=== PATIENT | female | born 1940 | race Caucasian/White ===

== ENCOUNTER → 2016-05-10 | Outpatient (CLI) | payer MEDICARE, BC, MEDICAID ==
[2016-05-10 14:37] LABS: ALBUMIN 3.8 GM/DL (3.2-5.2); ALBUMIN/GLOBULIN RATIO 0.97 (1.00-1.93); BILIRUBIN,TOTAL 0.2 MG/DL (0.2-1.0); CALCIUM LEVEL 9.5 MG/DL (8.8-10.2); CREATININE FOR GFR 0.98 MG/DL (0.55-1.02); GLOMERULAR FILTRATION RATE 58.9 (>39); POTASSIUM SERUM 3.9 MEQ/L (3.5-5.1); TOTAL PROTEIN 7.7 GM/DL (6.4-8.2)
--- NOTE | 2016-05-10 14:42 | REP ---
Clinical: Presurgical planning Comparison: 07/01/2015 . Technique: PA and lateral. Findings: The mediastinum and cardiac silhouette are normal. The lung puckett are clear and without acute consolidation, effusion, or pneumothorax. The skeletal structures are intact and normal. Impression: 1. No acute cardiopulmonary process. Signed by Alcon Gavin MD 05/10/2016 02:34 P
--- NOTE | 2016-05-11 09:22 | ECGEPIP ---
Stationary ECG Study [facility] Test Date: 2016-05-10 Pat Name: SR CUNNINGHAM Department: Room: - Gender: F Virologist: COLT : 1940 Requested By: Madhav Madden Order Number: [id number] Reading MD: Kris Lantigua Measurements Intervals [place]dick Rate: 71 P: 61 GA: 152 QRS: 9 QRSD: 148 T: 158 QT: 437 QTc: 475 Interpretive Statements SINUS RHYTHM LEFT BUNDLE BRANCH BLOCK Prolonged QTc Comparison tracing not on file Electronically Signed On 05-11-2016 9:22:07 EST by Kris Lantigua
== END | disposition home or self-care (01) ==
LOC: M LAB 13:48
PROVIDERS: ATTEND Ophthalmology
DX: Z01.818 Encounter for other preprocedural examination (principal); H25.13 Age-related nuclear cataract, bilateral; I44.7 Left bundle-branch block, unspecified; R94.31 Abnormal electrocardiogram [ECG] [EKG]

== ENCOUNTER → 2016-05-27 | Day surgery (SDC) | payer MEDICARE, BC, MEDICAID ==
[~2016-05-27] VITALS: Ht 160 cm; Wt 86.2 kg
[~2016-05-27] MED LIST: ACETYLCHOLINE OPHTH SOLN 1% 2ML As Ordered ONE; ACETYLCHOLINE OPHTH SOLN 1% 2ML XX ONE; ASPI1TAB PO; BALANCED SALT IRRIGATION SOL 500ML GLASS BOTTLE (FOR OR EYE COMPOUND) IR ONE; BALANCED SALT IRRIGATION SOLUTION 500ML BAG (FOR OR EYE MACHINE) As Ordered ONE; CALC500T49 PO; CARV3.12 PO; CLON1TAB PO; D5W/0.2% SODIUM CHLORIDE 250 ML IV SCH; FISH1000 PO; FURO20TA2 PO; HEALON DUET (HEALON 10MG/ML 0.55ML & HEALON ENDOCOAT 30MG/ML 0.85ML) As Ordered ONE; HEALON DUET (HEALON 10MG/ML 0.55ML & HEALON ENDOCOAT 30MG/ML 0.85ML) XX ONE; LEVO75TA4 PO; LIDOCAINE 0.75%/EPINEPHRINE 0.025% IN BSS 1ML SYR INTRACAMERAL (OR ONLY) As Ordered ONE; LIDOCAINE 0.75%/EPINEPHRINE 0.025% IN BSS 1ML SYR INTRACAMERAL (OR ONLY) XX ONE; LIDOCAINE 4% INJ 5 ML AMP As Ordered ONE; LIDOCAINE 4% INJ 5 ML AMP XX ONE; MIDAZOLAM INJ 2 MG/2 ML VIAL (J2250) As Ordered ONE; OFLOXACIN 0.3 % (OCUFLOX) OPTH SOL 5ML OS ONE; PHENYLEPHRINE 2.5% OPHTH SOL 2ML OS ONE; POVIDONE-IODINE 5% OPHTH PREP SOL 30ML As Ordered ONE; PROPARACAINE 0.5% OPHTH SOL 15ML OS ONE; REST0.05 OU; SERT-141 PO; SYST1SOL OU; TOBRADEX OPHTH OINT 3.5 GM As Ordered ONE; TOBRADEX OPHTH OINT 3.5 GM XX ONE; TROPICAMIDE 1% OPHTH SOLN 2 ML OS ONE; TYLE650T35 PO; VITA100072 PO; fentaNYL 100 MCG/2 ML INJECTION (J3010) As Ordered ONE
[2016-05-27 10:15] VITALS: BP 150/75
--- NOTE | 2016-05-28 11:17 | RO ---
DATE OF PROCEDURE: 05/27/2016 PREOPERATIVE DIAGNOSIS: Visually significant nuclear sclerotic cataract left eye. POSTOPERATIVE DIAGNOSIS: Visually significant nuclear sclerotic cataract left eye. PROCEDURE: Cataract extraction with use of phacoemulsification and placement of intraocular lens ZCB00, 23.5 diopter, left eye. SURGEON: Tim Nguyen DO RAW SILK GRADER: ANESTHESIA: Local with monitored anesthesia care (MAC). COMPLICATIONS: None. POSTOPERATIVE CONDITION: Stable. INDICATION FOR SURGERY: Blurred vision left eye affecting patient's activities of daily living. DESCRIPTION OF PROCEDURE: The patient was seen in the preoperative area and properly identified. The correct operative eye was identified and marked. Attention was turned to that eye. The patient received topical antibiotics in the preoperative area. The patient then received topical dilating drops consisting of tropicamide and phenylephrine. The patient was then transferred to the operating room. The correct side was reidentified. The patient received topical anesthetics and antibiotics on the surface of the eye. The eye was prepped and draped in a sterile fashion. The upper and lower eyelids were isolated with Tegaderm tape, and the lids were held open with an adjustable speculum. Using a sideport blade, a paracentesis incision was made. Intraocular preservative-free lidocaine was then injected into the anterior chamber. Viscoelastic was then injected into the anterior chamber through the paracentesis. Using a 2.65 mm sharp-tipped keratome, the anterior chamber was entered via a temporal clear corneal incision. A continuous curvilinear capsulorrhexis was created with the aid of a 26-gauge cystotome and Utrata forceps. Hydrodissection was performed with balanced salt solution (BSS) on a blunt cannula until the nucleus was freely mobile. The crystalline lens was phacoemulsified and aspirated. Additional cohesive viscoelastic was placed into the capsular bag to deepen it. A ZCB00, 23.5 diopter lens was placed into the capsular bag and confirmed by visualizing the continuous curvilinear capsulorrhexis. Additional irrigation and aspiration was used to remove cortical material and remaining viscoelastic. The clear corneal incision was hydrated with BSS on a blunt cannula. The lens was well positioned. The incisions were then tested for leaks and found to be negative. The eye was then palpated for appropriate pressure and adjusted accordingly with BSS. The eyelid speculum was then carefully removed. Tobradex ointment was placed in the eye. An eye patch and shield were then secured over the eye. The patient tolerated the procedure well and was discharged to the recovery unit in a stable condition. TONYA
== END | disposition home or self-care (01) ==
LOC: M SDC 07:04
PROVIDERS: ATTEND Ophthalmology
DX: H25.12 Age-related nuclear cataract, left eye (principal); I50.22 Chronic systolic (congestive) heart failure; I42.0 Dilated cardiomyopathy; I44.7 Left bundle-branch block, unspecified; E78.5 Hyperlipidemia, unspecified; E66.9 Obesity, unspecified; G47.33 Obstructive sleep apnea (adult) (pediatric); E03.9 Hypothyroidism, unspecified; K21.9 Gastro-esophageal reflux disease without esophagitis; M19.90 Unspecified osteoarthritis, unspecified site; M54.9 Dorsalgia, unspecified; Z91.81 History of falling; Z79.899 Other long term (current) drug therapy; Z79.82 Long term (current) use of aspirin; Z88.8 Allergy status to other drugs, medicaments and biological substances; Z88.0 Allergy status to penicillin; Z88.2 Allergy status to sulfonamides
CPT/HCPCS: 66984; J2250; J3010; V2632

== ENCOUNTER → 2016-06-17 | Day surgery (SDC) | payer MEDICARE, BC, MEDICAID ==
[~2016-06-17] VITALS: Ht 160 cm; Wt 86.0 kg
[~2016-06-17] MED LIST changes: -BALANCED SALT IRRIGATION SOL 500ML GLASS BOTTLE (FOR OR EYE COMPOUND) IR ONE; +CEFUROXIME 1MG/0.1ML INTRACAMERAL INJ As Ordered ONE; -D5W/0.2% SODIUM CHLORIDE 250 ML IV SCH; -LIDOCAINE 0.75%/EPINEPHRINE 0.025% IN BSS 1ML SYR INTRACAMERAL (OR ONLY) XX ONE; +LIDOCAINE 1% SDV 5 ML VIAL XX ONE; +OFLOXACIN 0.3 % (OCUFLOX) OPTH SOL 5ML OD ONE; -OFLOXACIN 0.3 % (OCUFLOX) OPTH SOL 5ML OS ONE; +PHENYLEPHRINE 2.5% OPHTH SOL 2ML OD ONE; -PHENYLEPHRINE 2.5% OPHTH SOL 2ML OS ONE; +PROPARACAINE 0.5% OPHTH SOL 15ML OD ONE; -PROPARACAINE 0.5% OPHTH SOL 15ML OS ONE; -TOBRADEX OPHTH OINT 3.5 GM XX ONE; +TROPICAMIDE 1% OPHTH SOLN 2 ML OD ONE; -TROPICAMIDE 1% OPHTH SOLN 2 ML OS ONE
[2016-06-17] MEDS: D5W/0.2% SODIUM CHLORIDE 250 ML IV SCH ×3 (09:00→09:37)
[2016-06-17 11:25] VITALS: BP 136/65
--- NOTE | 2016-06-17 23:12 | RO ---
DATE OF PROCEDURE: 06/17/2016 PREOPERATIVE DIAGNOSIS: Visually significant nuclear sclerotic cataract right eye. POSTOPERATIVE DIAGNOSIS: Visually significant nuclear sclerotic cataract right eye. PROCEDURE: Cataract extraction with use of phacoemulsification and placement of intraocular lens 22.5 diopters, ZCB00, right eye. SURGEON: Tim Nguyen DO TRUCK CHAUFFEUR: ANESTHESIA: Local with monitored anesthesia care (MAC). COMPLICATIONS: None. POSTOPERATIVE CONDITION: Stable. INDICATION FOR SURGERY: Blurred vision right eye affecting patient's activities of daily living. DESCRIPTION OF PROCEDURE: The patient was seen in the preoperative area and properly identified. The correct operative eye was identified and marked. Attention was turned to that eye. The patient received topical antibiotics in the preoperative area. The patient then received topical dilating drops consisting of tropicamide and phenylephrine. The patient was then transferred to the operating room. The correct side was reidentified. The patient received topical anesthetics and antibiotics on the surface of the eye. The eye was prepped and draped in a sterile fashion. The upper and lower eyelids were isolated with Tegaderm tape, and the lids were held open with an adjustable speculum. Using a sideport blade, a paracentesis incision was made. Intraocular preservative-free lidocaine was then injected into the anterior chamber. Viscoelastic was then injected into the anterior chamber through the paracentesis. Using a 2.65 mm sharp-tipped keratome, the anterior chamber was entered via a temporal clear corneal incision. A continuous curvilinear capsulorrhexis was created with the aid of a 26-gauge cystotome and Utrata forceps. Hydrodissection was performed with balanced salt solution (BSS) on a blunt cannula until the nucleus was freely mobile. The crystalline lens was phacoemulsified and aspirated. Additional cohesive viscoelastic was placed into the capsular bag to deepen it. A right lens was placed into the capsular bag and confirmed by visualizing the continuous curvilinear capsulorrhexis. Additional irrigation and aspiration was used to remove cortical material and remaining viscoelastic. The clear corneal incision was hydrated with BSS on a blunt cannula. The lens was well positioned. The incisions were then tested for leaks and found to be negative. The eye was then palpated for appropriate pressure and adjusted accordingly with BSS. Several drops of antibiotics and Iopidine were placed in the eye. The eyelid speculum was then carefully removed. Maxitrol ointment was placed in the eye. An eye patch and shield were then secured over the eye. The patient tolerated the procedure well and was discharged to the recovery unit in a stable condition. TONYA
== END | disposition home or self-care (01) ==
LOC: M SDC 07:21
PROVIDERS: ATTEND Ophthalmology
DX: H25.11 Age-related nuclear cataract, right eye (principal); I50.22 Chronic systolic (congestive) heart failure; I42.0 Dilated cardiomyopathy; I44.7 Left bundle-branch block, unspecified; E78.00 Pure hypercholesterolemia, unspecified; K21.9 Gastro-esophageal reflux disease without esophagitis; G47.33 Obstructive sleep apnea (adult) (pediatric); E03.9 Hypothyroidism, unspecified; Z79.899 Other long term (current) drug therapy; Z79.82 Long term (current) use of aspirin; Z88.0 Allergy status to penicillin; Z88.2 Allergy status to sulfonamides; Z88.8 Allergy status to other drugs, medicaments and biological substances
CPT/HCPCS: 66984; J2250; J3010; V2632

== ENCOUNTER → 2016-09-22 | Outpatient (REF) | payer MEDICARE, BC, MEDICAID ==
[~2016-09-22] MED LIST changes: -ACETYLCHOLINE OPHTH SOLN 1% 2ML As Ordered ONE; -ACETYLCHOLINE OPHTH SOLN 1% 2ML XX ONE; -BALANCED SALT IRRIGATION SOLUTION 500ML BAG (FOR OR EYE MACHINE) As Ordered ONE; -CEFUROXIME 1MG/0.1ML INTRACAMERAL INJ As Ordered ONE; -HEALON DUET (HEALON 10MG/ML 0.55ML & HEALON ENDOCOAT 30MG/ML 0.85ML) As Ordered ONE; -HEALON DUET (HEALON 10MG/ML 0.55ML & HEALON ENDOCOAT 30MG/ML 0.85ML) XX ONE; -LIDOCAINE 0.75%/EPINEPHRINE 0.025% IN BSS 1ML SYR INTRACAMERAL (OR ONLY) As Ordered ONE; -LIDOCAINE 1% SDV 5 ML VIAL XX ONE; -LIDOCAINE 4% INJ 5 ML AMP As Ordered ONE; -LIDOCAINE 4% INJ 5 ML AMP XX ONE; -MIDAZOLAM INJ 2 MG/2 ML VIAL (J2250) As Ordered ONE; -OFLOXACIN 0.3 % (OCUFLOX) OPTH SOL 5ML OD ONE; -PHENYLEPHRINE 2.5% OPHTH SOL 2ML OD ONE; -POVIDONE-IODINE 5% OPHTH PREP SOL 30ML As Ordered ONE; -PROPARACAINE 0.5% OPHTH SOL 15ML OD ONE; -SERT-141 PO; +SERT50TA PO; -TOBRADEX OPHTH OINT 3.5 GM As Ordered ONE; -TROPICAMIDE 1% OPHTH SOLN 2 ML OD ONE; -fentaNYL 100 MCG/2 ML INJECTION (J3010) As Ordered ONE
[2016-09-22 12:20] LABS: ALBUMIN 3.6 GM/DL (3.2-5.2); ALBUMIN/GLOBULIN RATIO 0.95 (1.00-1.93); ALKALINE PHOSPHATASE 69 U/L (45-117); ALT/SGPT 21 U/L (12-78); ANION GAP 9 MEQ/L (8-16); AST/SGOT 17 U/L (15-37); BILIRUBIN,DIRECT < 0.1 MG/DL (0.0-0.2); BILIRUBIN,TOTAL 0.4 MG/DL (0.2-1.0); BLOOD UREA NITROGEN 20 MG/DL (7-18); CALCIUM LEVEL 8.9 MG/DL (8.8-10.2); CARBON DIOXIDE LEVEL 27 MEQ/L (21-32); CHLORIDE LEVEL 105 MEQ/L (98-107); CHOLESTEROL LEVEL 216 MG/DL (<200); CREATININE FOR GFR 0.94 MG/DL (0.55-1.02); GLOMERULAR FILTRATION RATE > 60.0 (>39); GLUCOSE, FASTING 82 MG/DL (83-110); POTASSIUM SERUM 4.2 MEQ/L (3.5-5.1); SODIUM LEVEL 141 MEQ/L (136-145); TOTAL PROTEIN 7.4 GM/DL (6.4-8.2); TRIGLYCERIDES LEVEL 153 MG/DL (<150)
== END ==
LOC: M SFHCPLAZ 07:42
PROVIDERS: ATTEND Internal Medicine
DX: Z51.81 Encounter for therapeutic drug level monitoring (principal); Z79.899 Other long term (current) drug therapy; E78.00 Pure hypercholesterolemia, unspecified; R74.8 Abnormal levels of other serum enzymes; E03.9 Hypothyroidism, unspecified

== ENCOUNTER → 2017-01-14 | Outpatient (CLI) | payer MEDICARE, BC, MEDICAID ==
--- NOTE | 2017-01-18 15:26 | SLEEPCENT ---
DATE OF PROCEDURE: 01/14/2017 REQUESTING PROVIDER: Kris Hernandez DO INTERPRETATION: Nocturnal polysomnography was performed for reevaluation of sleep physiology in this patient with a prior diagnosis of obstructive sleep apnea syndrome and periodic limb movement disorder. Testing was performed with a standard montage for rediagnostic purposes. 8 hours and 41 minutes of data were reviewed. There were 391 minutes of sleep identified. Sleep latency was normal at 36 minutes. Rapid eye movement (REM) latency was not achieved. Sleep architecture showed fragmentation and poor progression. There was a period of wake around 4:00 a.m. Overall sleep efficiency was diminished therefore to 76.4%. The electrocardiogram (EKG) showed a sinus rhythm with an intraventricular conduction delay. Average heart rate 66 beats per minute. Electroencephalogram (EEG) showed coarsening in background consistent with medication effect (Zoloft). There were 82 respiratory events identified of 10 seconds in duration or greater for an apnea hypopnea index of 12.6. The events were obstructive in nature, not exclusive to sleep stage, exclusive to the supine posture. Arousals from respiratory events were noted only 2.5 times per hour and oxygen desaturations were seen into the upper 80s. Limb activity was particularly prominent early in the study and improved later in the test. Limb movement arousal index remained the upper limits of normal at 6. IMPRESSION: 1. Mild positional obstructive sleep apnea syndrome (G47.33). Apnea hypopnea index of 12.6. 2. Periodic limb movement disorder (G47.61). Limb movement arousal index of 6. RECOMMENDATIONS: At minimum sleep position retraining for avoidance of the supine posture was recommended. Followup nocturnal oximetry may be helpful to determine persistence of respiratory events given the oxygen desaturations seen surrounding them. Continued use of arousal suppressing medication would seem prudent given the persistence of limb movement arousals during this testing.
== END ==
LOC: M SLEEP 19:22
PROVIDERS: ATTEND Internal Medicine Pulmonary Disease
DX: G47.33 Obstructive sleep apnea (adult) (pediatric) (principal); G47.61 Periodic limb movement disorder

== ENCOUNTER → 2017-03-23 | Outpatient (REF) | payer MEDICARE, BC, MEDICAID ==
[2017-03-23 10:27] LABS: MEAN CORPUSCULAR HEMOGLOBIN 29.6 pg (27.0-33.0); MEAN CORPUSCULAR HGB CONC 33.2 g/dl (32.0-36.5); MEAN CORPUSCULAR VOLUME 89.3 fl (80.0-96.0); PLATELET COUNT, AUTOMATED 284 10^3/uL (150-450); RED CELL DISTRIBUTION WIDTH 13.4 % (11.5-14.5); WHITE BLOOD COUNT 5.2 10^3/uL (4.0-10.0)
[2017-03-23 10:42] LABS: ALBUMIN 3.7 GM/DL (3.2-5.2); ALBUMIN/GLOBULIN RATIO 0.95 (1.00-1.93); ALKALINE PHOSPHATASE 186 U/L (45-117); ALT/SGPT 106 U/L (12-78); ANION GAP 9 MEQ/L (8-16); AST/SGOT 45 U/L (7-37); BILIRUBIN,TOTAL 0.5 MG/DL (0.2-1.0); BLOOD UREA NITROGEN 22 MG/DL (7-18); CALCIUM LEVEL 9.2 MG/DL (8.8-10.2); CARBON DIOXIDE LEVEL 25 MEQ/L (21-32); CHLORIDE LEVEL 106 MEQ/L (98-107); CHOLESTEROL LEVEL 198 MG/DL (<200); CREATININE FOR GFR 0.83 MG/DL (0.55-1.02); GLOMERULAR FILTRATION RATE > 60.0 (>39); GLUCOSE, FASTING 90 MG/DL (83-110); MAGNESIUM LEVEL 2.2 MG/DL (1.8-2.4); POTASSIUM SERUM 4.1 MEQ/L (3.5-5.1); SODIUM LEVEL 140 MEQ/L (136-145); TOTAL PROTEIN 7.6 GM/DL (6.4-8.2); TRIGLYCERIDES LEVEL 114 MG/DL (<150)
== END ==
LOC: M SFHCPLAZ 08:15
PROVIDERS: ATTEND Internal Medicine
DX: E78.00 Pure hypercholesterolemia, unspecified (principal); Z86.2 Personal history of diseases of the blood and blood-forming organs and certain disorders involving the immune mechanism; I42.9 Cardiomyopathy, unspecified

== ENCOUNTER → 2017-05-05 | Outpatient (REF) | payer MEDICARE, BC, MEDICAID ==
[2017-05-05 16:14] LABS: ALBUMIN 3.7 GM/DL (3.2-5.2); ALKALINE PHOSPHATASE 80 U/L (45-117); ALT/SGPT 24 U/L (12-78); AST/SGOT 21 U/L (7-37); BILIRUBIN,DIRECT 0.1 MG/DL (0.0-0.2); BILIRUBIN,TOTAL 0.3 MG/DL (0.2-1.0); TOTAL PROTEIN 7.8 GM/DL (6.4-8.2)
== END ==
LOC: M LAB REF 15:26
DX: R74.8 Abnormal levels of other serum enzymes (principal)

== ENCOUNTER → 2017-05-05 | Outpatient (REF) | payer MEDICARE, BC, MEDICAID ==
[2017-05-05 16:44] LABS: ALBUMIN 3.8 GM/DL (3.2-5.2); ALBUMIN/GLOBULIN RATIO 0.95 (1.00-1.93); ALKALINE PHOSPHATASE 83 U/L (45-117); ALT/SGPT 26 U/L (12-78); ANION GAP 8 MEQ/L (8-16); AST/SGOT 23 U/L (7-37); BILIRUBIN,DIRECT < 0.1 MG/DL (0.0-0.2); BILIRUBIN,TOTAL 0.3 MG/DL (0.2-1.0); BLOOD UREA NITROGEN 28 MG/DL (7-18); C REACTIVE PROTEIN QUANTITATIV 0.45 MG/DL (0.00-0.30); CALCIUM LEVEL 9.1 MG/DL (8.8-10.2); CARBON DIOXIDE LEVEL 25 MEQ/L (21-32); CHLORIDE LEVEL 107 MEQ/L (98-107); CREATININE FOR GFR 1.02 MG/DL (0.55-1.02); GLOMERULAR FILTRATION RATE 56.1 (>39); GLUCOSE, FASTING 141 MG/DL (83-110); IRON (FE) 96 UG/DL (50-170); PERCENT SATURATION 27.4 % (13.2-45.0); POTASSIUM SERUM 4.2 MEQ/L (3.5-5.1); SODIUM LEVEL 140 MEQ/L (136-145); TOTAL IRON BINDING CAPACITY 350 UG/DL (250-450); TOTAL PROTEIN 7.8 GM/DL (6.4-8.2)
[2017-05-06 10:10] LABS: HEPATITIS B SURFACE ANTIGEN NEGATIVE (NEGATIVE)
[2017-05-06 10:35] LABS: HEPATITIS B CORE ANTIBODY IGM NEGATIVE (NEGATIVE); HEPATITIS C VIRUS ABY INDEX 0.1 INDEX (<0.8)
[2017-05-06 10:37] LABS: HEPATITIS A ANTIBODY IGM NEGATIVE (NEGATIVE)
[2017-05-08 14:12] LABS: ANTI-MITOCHONDRIAL ANTIBODY 3.3 Units (0.0-20.0); ANTINUCLEAR ANTIBODIES DIRECT Negative (Negative); ENDOMYSIAL ABY IgA Negative (Negative); TISSUE TRANSGLUTAMINASE IgA 6 U/mL (0-3)
== END ==
LOC: M LAB REF 15:27
DX: R94.5 Abnormal results of liver function studies (principal); R74.8 Abnormal levels of other serum enzymes
CPT/HCPCS: 82248

== ENCOUNTER 2017-05-23 10:35 | Day surgery (SDC) | payer MEDICARE, BC, MEDICAID ==
[2017-05-23] MEDS: NS 1,000 ML IV (11:00)
[2017-05-23] MEDS ORDERED: PROPOFOL 200 MG/20 ML VIAL As Ordered ×2 (11:46→11:55)
== END 2017-05-23 13:10 | disposition home or self-care (01) ==
LOC: M OPP 10:35
DX: Z15.09 Genetic susceptibility to other malignant neoplasm (principal); R19.5 Other fecal abnormalities; K64.0 First degree hemorrhoids; K57.30 Diverticulosis of large intestine without perforation or abscess without bleeding; R12 Heartburn; K22.8 Other specified diseases of esophagus; K44.9 Diaphragmatic hernia without obstruction or gangrene; K26.9 Duodenal ulcer, unspecified as acute or chronic, without hemorrhage or perforation; I50.9 Heart failure, unspecified; I44.7 Left bundle-branch block, unspecified; E78.5 Hyperlipidemia, unspecified; E03.9 Hypothyroidism, unspecified; K21.9 Gastro-esophageal reflux disease without esophagitis; K62.5 Hemorrhage of anus and rectum; R06.02 Shortness of breath; D64.9 Anemia, unspecified; M19.90 Unspecified osteoarthritis, unspecified site; M54.2 Cervicalgia; M54.89 Other dorsalgia; Z78.0 Asymptomatic menopausal state; R06.83 Snoring; G47.30 Sleep apnea, unspecified; Z96.653 Presence of artificial knee joint, bilateral; Z90.13 Acquired absence of bilateral breasts and nipples; Z88.0 Allergy status to penicillin; Z88.8 Allergy status to other drugs, medicaments and biological substances; Z88.2 Allergy status to sulfonamides; Z79.82 Long term (current) use of aspirin; Z79.899 Other long term (current) drug therapy
CPT/HCPCS: 45378

== ENCOUNTER → 2017-11-08 | Outpatient (REF) | payer MEDICARE, BC, MEDICAID ==
[2017-11-08 12:30] LABS: HEMATOCRIT 40.5 % (36.0-47.0); HEMOGLOBIN 13.7 g/dl (12.0-15.5); MEAN CORPUSCULAR HEMOGLOBIN 29.7 pg (27.0-33.0); MEAN CORPUSCULAR HGB CONC 33.8 g/dl (32.0-36.5); MEAN CORPUSCULAR VOLUME 87.9 fl (80.0-96.0); PLATELET COUNT, AUTOMATED 314 10^3/uL (150-450); RED BLOOD COUNT 4.61 10^6/uL (4.00-5.40); RED CELL DISTRIBUTION WIDTH 13.1 % (11.5-14.5); WHITE BLOOD COUNT 6.1 10^3/uL (4.0-10.0)
[2017-11-08 12:59] LABS: ALBUMIN 3.8 GM/DL (3.2-5.2); ALBUMIN/GLOBULIN RATIO 0.97 (1.00-1.93); ALKALINE PHOSPHATASE 103 U/L (45-117); ALT/SGPT 22 U/L (12-78); ANION GAP 8 MEQ/L (8-16); AST/SGOT 19 U/L (7-37); BILIRUBIN,TOTAL 0.4 MG/DL (0.2-1.0); BLOOD UREA NITROGEN 19 MG/DL (7-18); CALCIUM LEVEL 8.7 MG/DL (8.8-10.2); CARBON DIOXIDE LEVEL 25 MEQ/L (21-32); CHLORIDE LEVEL 107 MEQ/L (98-107); CHOLESTEROL LEVEL 188 MG/DL (<200); CHOLESTEROL RISK RATIO 4.086 (<5); CREATININE FOR GFR 0.84 MG/DL (0.55-1.30); GLOMERULAR FILTRATION RATE > 60.0 (>39); GLUCOSE, FASTING 90 MG/DL (70-100); HDL CHOLESTEROL 46 MG/DL (>40); LDL CHOLESTEROL 103.8 MG/DL (<100); MAGNESIUM LEVEL 2.1 MG/DL (1.8-2.4); NON-HDL-C 142 MG/DL; POTASSIUM SERUM 4.5 MEQ/L (3.5-5.1); SODIUM LEVEL 140 MEQ/L (136-145); TOTAL PROTEIN 7.7 GM/DL (6.4-8.2); TRIGLYCERIDES LEVEL 191 MG/DL (<150)
== END ==
LOC: M SFHCPLAZ 11:41
DX: E78.00 Pure hypercholesterolemia, unspecified (principal); I42.9 Cardiomyopathy, unspecified; Z86.2 Personal history of diseases of the blood and blood-forming organs and certain disorders involving the immune mechanism; E03.9 Hypothyroidism, unspecified
CPT/HCPCS: 83735

== ENCOUNTER → 2018-05-18 | Outpatient (REF) | payer MEDICARE, BC, MEDICAID ==
[~2018-05-18] MED LIST changes: -CLON1TAB PO; +CLON1TAB8 PO; +MAGN1TAB25 PO; +MAGN400T5 PO
[2018-05-18 10:27] LABS: HEMATOCRIT 41.5 % (36.0-47.0); HEMOGLOBIN 13.7 g/dl (12.0-15.5); MEAN CORPUSCULAR HEMOGLOBIN 29.3 pg (27.0-33.0); MEAN CORPUSCULAR VOLUME 88.7 fl (80.0-96.0); PLATELET COUNT, AUTOMATED 288 10^3/uL (150-450); RED BLOOD COUNT 4.68 10^6/uL (4.00-5.40); WHITE BLOOD COUNT 5.3 10^3/uL (4.0-10.0)
[2018-05-18 10:31] LABS: ALBUMIN 3.6 GM/DL (3.2-5.2); BILIRUBIN,TOTAL 0.5 MG/DL (0.2-1.0); CALCIUM LEVEL 9.1 MG/DL (8.8-10.2); CHOLESTEROL RISK RATIO 3.584 (<5); CREATININE FOR GFR 1.03 MG/DL (0.55-1.30); GLOMERULAR FILTRATION RATE 55.3 (>39); POTASSIUM SERUM 3.9 MEQ/L (3.5-5.1); TOTAL PROTEIN 7.5 GM/DL (6.4-8.2)
== END ==
LOC: M SFHCPLAZ 08:01
PROVIDERS: ATTEND Internal Medicine
DX: Z86.2 Personal history of diseases of the blood and blood-forming organs and certain disorders involving the immune mechanism (principal); E78.00 Pure hypercholesterolemia, unspecified; I42.9 Cardiomyopathy, unspecified

== ENCOUNTER → 2018-11-16 | Outpatient (CLI) | payer MEDICARE, BC, MEDICAID ==
[~2018-11-16] MED LIST changes: -ASPI1TAB PO; +ASPI81TA26 PO; -MAGN1TAB25 PO; +MAGN1TAB26 PO; +SERT-141 PO; -SERT50TA PO; +VITA100018 PO; -VITA100072 PO
--- NOTE | 2018-11-16 11:07 | REP ---
Lumbar spine three views: There are no comparisons. The study consists of AP and lateral views of the lumbar spine. The lateral views are slightly oblique. Vertebral body heights and alignment are normal. There is advanced degenerative disc disease at every lumbar level. 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 The sacroiliac articulations are unremarkable. There are surgical clips in the abdominal right upper quadrant. Impression: Advanced degenerative disc disease at every lumbar level. Electronically Signed by Nikos Enriquez MD 11/16/2018 10:59 A
--- NOTE | 2018-11-16 13:46 | REP ---
Pelvis: Single view. History: Perineal pain. Findings: Femoral heads are smooth and rounded. There is bilateral hip joint space narrowing, right more so than left. Femoroacetabular spurring is noted on the right. Periarticular soft tissues are unremarkable. The bony pelvic ring is intact. Sacrum and SI joints are intact. There is some sclerosis on either side of the symphysis pubis. Impression: Osteoarthritic changes most pronounced in the right hip. Sclerosis seen in the symphysis pubis. Electronically Signed by Yoni Rose MD 11/16/2018 07:21 P
== END ==
LOC: M WUC 10:10
PROVIDERS: ATTEND Physician Assistant
DX: M51.36 Other intervertebral disc degeneration, lumbar region (principal); M25.78 Osteophyte, vertebrae; M16.11 Unilateral primary osteoarthritis, right hip

== ENCOUNTER → 2018-11-20 | Outpatient (REF) | payer MEDICARE, BC, MEDICAID ==
[2018-11-20 09:58] LABS: ALBUMIN 3.5 GM/DL (3.2-5.2); ALT/SGPT 23 U/L (12-78); BILIRUBIN,TOTAL 0.3 MG/DL (0.2-1.0); BLOOD UREA NITROGEN 23 MG/DL (7-18); CALCIUM LEVEL 9.3 MG/DL (8.8-10.2); CARBON DIOXIDE LEVEL 27 MEQ/L (21-32); CHLORIDE LEVEL 108 MEQ/L (98-107); CHOLESTEROL LEVEL 187 MG/DL (<200); CREATININE FOR GFR 0.88 MG/DL (0.55-1.30); GLOMERULAR FILTRATION RATE > 60.0 (>39); GLUCOSE, FASTING 90 MG/DL (70-100); HDL CHOLESTEROL 50 MG/DL (>40); LDL CHOLESTEROL 116 MG/DL (<100); NON-HDL-C 137 MG/DL; POTASSIUM SERUM 3.8 MEQ/L (3.5-5.1); SODIUM LEVEL 142 MEQ/L (136-145); TOTAL PROTEIN 7.4 GM/DL (6.4-8.2); TRIGLYCERIDES LEVEL 107 MG/DL (<150)
== END ==
LOC: M SFHCPLAZ 07:52
PROVIDERS: ATTEND Internal Medicine
DX: E78.00 Pure hypercholesterolemia, unspecified (principal); E03.9 Hypothyroidism, unspecified

== ENCOUNTER → 2019-07-09 | Outpatient (REF) | payer MEDICARE, BC, MEDICAID ==
[2019-07-09 09:51] LABS: HEMATOCRIT 42.8 % (36.0-47.0); HEMOGLOBIN 13.9 g/dl (12.0-15.5); MEAN CORPUSCULAR HEMOGLOBIN 28.3 pg (27.0-33.0); MEAN CORPUSCULAR HGB CONC 32.5 g/dl (32.0-36.5); MEAN CORPUSCULAR VOLUME 87.2 fl (80.0-96.0); PLATELET COUNT, AUTOMATED 310 10^3/uL (150-450); RED BLOOD COUNT 4.91 10^6/uL (4.00-5.40)
[2019-07-09 10:30] LABS: ALBUMIN 3.9 GM/DL (3.2-5.2); BILIRUBIN,TOTAL 0.4 MG/DL (0.2-1.0); CHOLESTEROL RISK RATIO 3.51 (<5); CREATININE FOR GFR 0.96 MG/DL (0.55-1.30); GLOMERULAR FILTRATION RATE 59.8 (>39); MAGNESIUM LEVEL 2.2 MG/DL (1.8-2.4); POTASSIUM SERUM 4.3 MEQ/L (3.5-5.1); THYROID STIMULATING HORMONE 2.95 uIU/ML (0.358-3.740); TOTAL PROTEIN 7.8 GM/DL (6.4-8.2)
== END ==
LOC: M SFHCPLAZ 08:11
PROVIDERS: ATTEND Internal Medicine
DX: Z86.2 Personal history of diseases of the blood and blood-forming organs and certain disorders involving the immune mechanism (principal); E78.00 Pure hypercholesterolemia, unspecified; I42.9 Cardiomyopathy, unspecified; E03.9 Hypothyroidism, unspecified

== ENCOUNTER → 2020-01-08 | Outpatient (REF) | payer MEDICARE ==
[~2020-01-08] MED LIST changes: +ACET650T61 PO; -TYLE650T35 PO
[2020-01-08 20:18] LABS: HEMATOCRIT 45.3 % (36.0-47.0); HEMOGLOBIN 14.1 g/dl (12.0-15.5); MEAN CORPUSCULAR HEMOGLOBIN 29.4 pg (27.0-33.0); MEAN CORPUSCULAR HGB CONC 31.1 g/dl (32.0-36.5); MEAN CORPUSCULAR VOLUME 94.6 fl (80.0-96.0); PLATELET COUNT, AUTOMATED 288 10^3/uL (150-450); RED BLOOD COUNT 4.79 10^6/uL (4.00-5.40); WHITE BLOOD COUNT 5.7 10^3/uL (4.0-10.0)
[2020-01-08 20:41] LABS: ALBUMIN 3.3 GM/DL (3.2-5.2); BILIRUBIN,TOTAL 0.8 MG/DL (0.2-1.0); CALCIUM LEVEL 9.2 MG/DL (8.8-10.2); CREATININE FOR GFR 1.01 MG/DL (0.55-1.30); GLOMERULAR FILTRATION RATE 56.4 (>39); MAGNESIUM LEVEL 2.3 MG/DL (1.8-2.4); POTASSIUM SERUM 4.1 MEQ/L (3.5-5.1); TOTAL PROTEIN 7.2 GM/DL (6.4-8.2)
[2020-01-09 13:10] LABS: FOLATE 18.5 NG/ML
== END ==
LOC: M LAB REF 19:59
PROVIDERS: ATTEND Internal Medicine
DX: E78.00 Pure hypercholesterolemia, unspecified (principal); R53.81 Other malaise; G47.61 Periodic limb movement disorder; Z86.2 Personal history of diseases of the blood and blood-forming organs and certain disorders involving the immune mechanism

== ENCOUNTER → 2020-02-12 | Outpatient (CLI) | payer MEDICARE, MEDICAID ==
--- NOTE | 2020-02-12 13:30 | REPVR ---
PROCEDURE INFORMATION: Exam: US Duplex Right Lower Extremity Veins, Limited Exam date and time: 02/12/2020 1:03 PM Age: 79 years old Clinical indication: Pain; Other: Knee; Additional info: Pain in right lower leg; rule out DVT TECHNIQUE: Imaging protocol: Real-time Duplex ultrasound of the Right Lower Extremity with 2-D conner scale, color Doppler flow and spectral waveform analysis with image documentation. Limited exam was focused on the right lower extremity veins. COMPARISON: US Duplex, Ext LOWER veins, bilat 02/25/2015 4:15 PM FINDINGS: Right deep veins: The common femoral, femoral, and popliteal veins are patent without thrombus. Normal compressibility and/or augmentation response. The mid femoral vein is duplicated and both vessels are patent. Right superficial veins: The saphenofemoral junction is patent without thrombus. Soft tissues: A 7.9 x 8.3 x 5.9 cm hypoechoic and echogenic heterogeneous complex cystic appearing mass is present at the popliteal fossa. Portions of the mass have echogenic thickened dave. Some portions of the mass demonstrate color Doppler flow peripherally. Some small debris appears present amongst the hypoechoic fluid more centrally within the mass. IMPRESSION: 1. No evidence of deep vein thrombosis in the visualized lower extremity. 2. Large complex cystic-appearing mass present at the right popliteal fossa. The finding is nonspecific. This may represent a complex popliteal fossa cyst with synovial hypertrophy. An infected fluid collection, hematoma, or a neoplasm are not excluded. This can be further evaluated with MRI. Electronically signed by: Abraham Walker On 02/12/2020 13:30:29 PM
== END ==
LOC: M RAD 11:54
PROVIDERS: ATTEND Orthopaedic Surgery
DX: R22.41 Localized swelling, mass and lump, right lower limb (principal); M79.661 Pain in right lower leg

== ENCOUNTER → 2020-02-13 | Outpatient (CLI) | payer MEDICARE, MEDICAID ==
[2020-02-13 11:01] LABS: CREATININE FOR GFR 1.09 MG/DL (0.55-1.30); GLOMERULAR FILTRATION RATE 51.7 (>39)
== END ==
LOC: M PLALAB 08:54
PROVIDERS: ATTEND Orthopaedic Surgery
DX: M25.561 Pain in right knee (principal)

== ENCOUNTER → 2020-02-27 | Outpatient (CLI) | payer MEDICARE, MEDICAID ==
[~2020-02-27] MED LIST changes: +PROHANCE 279.3MG/ML 5ML VIAL As Ordered ONE
--- NOTE | 2020-03-20 14:28 | REP ---
INDICATION: RT KNEE PAIN ? MALIGNANCY. COMPARISON: Ultrasound 02/12/2020 TECHNIQUE: Multiple sequences obtained in the axial, coronal and sagittal planes prior to and following the intravenous administration of 10 mL ProHance. FINDINGS: Artifact from metallic hardware in the distal femur and proximal tibia somewhat limits the exam. However, there is evidence of a lobulated cystic mass in the popliteal fossa. It is fairly large and measures approximately 9 point 9 x 7.0 x 7.7 cm. It is predominantly hypointense on T1 weighted images. It is heterogeneous on T2 weighted images with hyperintense cystic components mixed with relatively isointense more solid-appearing components. There is questionable enhancement following the intravenous administration of gadolinium. Evaluation for internal enhancement is limited due to the metallic artifact. Correlating with the ultrasound blood flow was seen within the solid components of the mass. Therefore I would suggest biopsy. IMPRESSION: Lobulated cystic and solid mass in the popliteal fossa. Recommend biopsy. This could be performed with ultrasound guidance. <Electronically signed by Nikos Churchill > 03/20/20 [id number]
== END | disposition home or self-care (01) ==
LOC: M RAD 16:55
PROVIDERS: ATTEND Orthopaedic Surgery
DX: M25.561 Pain in right knee (principal)
CPT/HCPCS: 73723; A9576

== ENCOUNTER → 2020-03-05 | Outpatient (CLI) | payer MEDICARE, MEDICAID ==
[~2020-03-05] MED LIST changes: -PROHANCE 279.3MG/ML 5ML VIAL As Ordered ONE
--- NOTE | 2020-03-05 13:30 | REP ---
INDICATION: PRESENCE OF RT ART KNEE FILE ROOM. COMPARISON: Comparison bone scan of the knees from November 16, 2007.. TECHNIQUE: Three-phase bone scan. 22.0 mCi of technetium 99 M MDP is injected and standard 3 phase imaging is acquired to the knees. FINDINGS: Anterior and posterior flow study is unremarkable. Blood pool images demonstrate areas of photopenia relating to prosthetic components in both knees. Delayed scan images demonstrate bone/prosthesis interface uptake bilaterally. This is a little more prominent on the right in the tibial metaphyseal region than it is in the corresponding area on the left. The intramedullary stem components of the left-sided prosthesis are longer than those on the right indicating different hardware. On the left, there is some increased uptake in the proximal tibia as well, in the proximal diametaphyseal region of the tibia. There is increased uptake on delayed scans in both patella although this is symmetric. In comparison with the prior study from 2007, the uptake pattern is quite similar and is not felt to have changed. IMPRESSION: Pattern is again felt to be consistent with a evidence of loosening in the tibial components bilaterally however the findings are essentially unchanged from 2008 which mitigates somewhat against loosening. Otherwise negative. <Electronically signed by Arnol Rose > 03/05/20 [id number]
== END ==
LOC: M RAD 10:10
PROVIDERS: ATTEND Orthopaedic Surgery
DX: T84.032A Mechanical loosening of internal right knee prosthetic joint, initial encounter (principal); Y79.2 Prosthetic and other implants, materials and accessory orthopedic devices associated with adverse incidents
CPT/HCPCS: 78315; A9503

== ENCOUNTER 2020-04-26 11:44 | Emergency (ER) | payer MEDICARE, MEDICAID ==
[~2020-04-26] VITALS: Ht 157.5 cm; Wt 109.1 kg
[2020-04-26] MEDS ORDERED: CLIN300C6 PO (12:14)
[2020-04-26] MEDS ORDERED: OXYC1TAB23 PO (12:14)
[2020-04-26] MEDS ORDERED: NS 1,000 ML IV ONE (13:00)
[2020-04-26 13:30] LABS: BASO # 0.1 10^3/uL (0.0-0.2); BASO % 0.3 % (0.0-1.0); EOS # 0.3 10^3/uL (0.0-0.5); EOS % 2.1 % (0.0-3.0); HEMOGLOBIN 12.2 g/dl (12.0-15.5); LYMPH # 1.8 10^3/uL (1.5-5.0); LYMPH % 11.6 % (24.0-44.0); MEAN CORPUSCULAR HEMOGLOBIN 27.3 pg (27.0-33.0); MEAN CORPUSCULAR HGB CONC 31.3 g/dl (32.0-36.5); MEAN CORPUSCULAR VOLUME 87.2 fl (80.0-96.0); MONO # 1.7 10^3/uL (0.0-0.8); MONO % 11.2 % (0.0-5.0); NEUTROPHILS # 11.2 10^3/uL (1.5-8.5); NEUTROPHILS % 74.3 % (36.0-66.0); PLATELET COUNT, AUTOMATED 446 10^3/uL (150-450); RED BLOOD COUNT 4.47 10^6/uL (4.00-5.40); WHITE BLOOD COUNT 15.1 10^3/uL (4.0-10.0)
[2020-04-26] MEDS ORDERED: ISOVUE-370 76% 100ML VIAL As Ordered ONE (13:39)
[2020-04-26 13:54] LABS: ALBUMIN 3.1 GM/DL (3.2-5.2); BILIRUBIN,DIRECT 0.1 MG/DL (0.0-0.2); BILIRUBIN,TOTAL 0.4 MG/DL (0.2-1.0); C REACTIVE PROTEIN QUANTITATIV 17.8 MG/DL (0.00-0.30); TOTAL PROTEIN 7.6 GM/DL (6.4-8.2)
[2020-04-26] MEDS ORDERED: NORCO, ANEXSIA 5/325MG TABLET (HYDROcodone/ACETAMINOPHEN) PO ONE (14:00)
[2020-04-26 14:02] LABS: ERYTHROCYTE SEDIMENTATION RATE 74 mm/hr (0-30)
--- NOTE | 2020-04-26 14:05 | REP ---
INDICATION: swelling right cheek/ear/parotid gland COMPARISON: None. TECHNIQUE: Axial contrast-enhanced images from the skull base to the thoracic inlet with coronal and sagittal reformations using 100 cc Isovue 370 intravenous contrast material. This CT examination was performed using the following dose reduction techniques: Automated exposure control, adjustment of mA and/or kv according to the patient's size, and use of iterative reconstruction technique. FINDINGS: The right parotid gland is asymmetrically enlarged and adjacent right cervical chain lymph nodes are also asymmetrically enlarged/prominent suggesting an acute inflammatory process. No obvious ductal stone is identified. No associated abnormal fluid collection/abscess. The bilateral submandibular and submental glands appear symmetric and normal. The naso, rudolph and hypopharynx, larynx and subglottic trachea are normal in appearance. The submandibular and submental and thyroid glands are normal in size and density. Small lymph nodes less than 1 cm in size are present in the internal jugular chains, posterior triangles, submandibular and submental areas. The lung apices are clear. The visualized sinuses are clear. IMPRESSION: Asymmetric enlargement to the right parotid gland with adjacent prominent lymph nodes suggests underlying infectious/inflammatory process. <Electronically signed by Alcon Gavin > 04/26/20 [id number]
[2020-04-26] MEDS ORDERED: VANCOMYCIN HCL 500 MG in D5W MINI-BAG PLUS 100 ML IV ONE (14:45)
[2020-04-26 15:49] VITALS: BP 161/72
[2020-04-26] MEDS ORDERED: MOXI1TAB PO (16:39)
== END 2020-04-26 16:57 | disposition home or self-care (01) ==
LOC: M ED 11:44
DX: K11.20 Sialoadenitis, unspecified (principal); K08.409 Partial loss of teeth, unspecified cause, unspecified class; K02.9 Dental caries, unspecified; E03.9 Hypothyroidism, unspecified; D64.9 Anemia, unspecified; I50.9 Heart failure, unspecified; Z79.899 Other long term (current) drug therapy; Z79.2 Long term (current) use of antibiotics; Z79.82 Long term (current) use of aspirin; Z88.0 Allergy status to penicillin; Z88.2 Allergy status to sulfonamides; Z88.8 Allergy status to other drugs, medicaments and biological substances
CPT/HCPCS: 70491; 80047; 80076; 83605; 85025; 85652; 86140; 87040; 96365; 99284; J3370; Q9967

== ENCOUNTER → 2020-07-01 | Outpatient (REF) | payer MEDICARE, MEDICAID ==
[~2020-07-01] MED LIST changes: +CLIN300C6 PO; +MOXI1TAB PO; +OXYC1TAB23 PO
[2020-07-01 10:33] LABS: BASO # 0.1 10^3/uL (0.0-0.2); BASO % 0.9 % (0.0-1.0); EOS # 0.6 10^3/uL (0.0-0.5); EOS % 9.7 % (0.0-3.0); HEMATOCRIT 40.8 % (36.0-47.0); HEMOGLOBIN 12.9 g/dl (12.0-15.5); LYMPH # 1.9 10^3/uL (1.5-5.0); LYMPH % 30.1 % (24.0-44.0); MEAN CORPUSCULAR HGB CONC 31.6 g/dl (32.0-36.5); MEAN CORPUSCULAR VOLUME 88.7 fl (80.0-96.0); MONO # 0.6 10^3/uL (0.0-0.8); MONO % 9.4 % (2.0-8.0); NEUTROPHILS # 3.2 10^3/uL (1.5-8.5); NEUTROPHILS % 49.7 % (36.0-66.0); PLATELET COUNT, AUTOMATED 297 10^3/uL (150-450); WHITE BLOOD COUNT 6.4 10^3/uL (4.0-10.0)
[2020-07-01 11:07] LABS: ALBUMIN 3.7 GM/DL (3.2-5.2); BILIRUBIN,TOTAL 0.3 MG/DL (0.2-1.0); CALCIUM LEVEL 9.2 MG/DL (8.8-10.2); CHOLESTEROL RISK RATIO 3.807 (<5); CREATININE FOR GFR 1.05 MG/DL (0.55-1.30); GLOMERULAR FILTRATION RATE 53.8 (>39); POTASSIUM SERUM 4.8 MEQ/L (3.5-5.1); THYROID STIMULATING HORMONE 3.77 uIU/ML (0.358-3.740); TOTAL PROTEIN 7.3 GM/DL (6.4-8.2)
== END ==
LOC: M LAB REF 09:13
PROVIDERS: ATTEND Internal Medicine
DX: E78.00 Pure hypercholesterolemia, unspecified (principal); Z86.2 Personal history of diseases of the blood and blood-forming organs and certain disorders involving the immune mechanism; E03.9 Hypothyroidism, unspecified

== ENCOUNTER 2020-10-26 09:29 | Inpatient (IN) | payer MEDICARE, MEDICAID, BC ==
[~2020-10-26] VITALS: Ht 160 cm; Wt 96.5 kg
[2020-10-26] MEDS ORDERED: OMEP-221 PO (09:57)
[2020-10-26] MEDS ORDERED: NAPR220C14 PO (09:57)
[2020-10-26 10:22] LABS: BASO # 0.1 10^3/uL (0.0-0.2); BASO % 0.5 % (0.0-1.0); EOS # 0.1 10^3/uL (0.0-0.5); EOS % 1.2 % (0.0-3.0); HEMATOCRIT 41.1 % (36.0-47.0); HEMOGLOBIN 13.3 g/dl (12.0-15.5); LYMPH % 9.8 % (24.0-44.0); MEAN CORPUSCULAR HGB CONC 32.4 g/dl (32.0-36.5); MEAN CORPUSCULAR VOLUME 89.7 fl (80.0-96.0); MONO # 0.6 10^3/uL (0.0-0.8); MONO % 5.5 % (2.0-8.0); NEUTROPHILS # 8.5 10^3/uL (1.5-8.5); NEUTROPHILS % 82.8 % (36.0-66.0); PLATELET COUNT, AUTOMATED 233 10^3/uL (150-450); RED BLOOD COUNT 4.58 10^6/uL (4.00-5.40); WHITE BLOOD COUNT 10.3 10^3/uL (4.0-10.0)
[2020-10-26] MEDS ORDERED: ISOVUE-370 76% 100ML VIAL As Ordered ONE (10:29)
--- NOTE | 2020-10-26 10:47 | REP ---
INDICATION: DYSPNEA/COUGH COMPARISON: 05/10/2016 TECHNIQUE: Portable AP view of the chest FINDINGS: The mediastinum and cardiac silhouette are stable and within normal limits for portable technique. The lung puckett are clear without acute consolidation, effusion, or pneumothorax. Skeletal structures are intact. IMPRESSION: No acute cardiopulmonary process appreciated. <Electronically signed by Alcon Gavin > 10/26/20 [id number]
[2020-10-26] MEDS ORDERED: APIXABAN 5 MG TAB (ELIQUIS) PO ONE (11:00)
--- NOTE | 2020-10-26 11:00 | REP ---
INDICATION: r/o PE COMPARISON: 02/25/2015 TECHNIQUE: Axial contrast enhanced images from the thoracic inlet to the upper abdomen using pulmonary embolus technique with multiplanar re-formations. 75 ml Isovue 370 intravenous contrast material administered without complication. This CT examination was performed using the following dose reduction techniques: Automated exposure control, adjustment of mA and/or kv according to the patient's size, and use of iterative reconstruction technique. FINDINGS: Extensive pulmonary emboli are identified within the right and left main pulmonary arteries extending into the left lower lobe and right lower lobe branches. The lung puckett demonstrate chronic appearing interstitial changes with minimal scattered fibroatelectatic changes. No focal consolidation or effusion. No pneumothorax. Tracheobronchial tree is patent. No significant adenopathy. Further evaluation of the mediastinum demonstrates atherosclerotic changes of the thoracic aorta and coronary arteries without aortic aneurysm or cardiomegaly. Small hiatal hernia noted at the gastroesophageal junction. Thyroid gland is normal. Musculoskeletal structures are intact. Limited upper abdomen demonstrates normal bilateral adrenal glands. IMPRESSION: Extensive pulmonary emboli in the right and left main pulmonary arteries with extension into the lower lobes. No associated pulmonary parenchymal changes currently identified. <Electronically signed by Alcon Gavin > 10/26/20 [id number]
--- NOTE | 2020-10-26 11:45 | REP ---
INDICATION: PEs COMPARISON: None. TECHNIQUE: Churchill scale and color Doppler evaluation using linear high frequency transducer. FINDINGS: Ultrasound examination of the right lower extremity demonstrates acute thrombus from the proximal femoral vein to the popliteal/peroneal trunk. Right lower extremity veins below the trunk into the calf could not be assessed due to significant edema. Complex Willoughby's cyst in the popliteal fossa noted measuring 7.9 x 5.0 x 5.6 cm. Ultrasound examination of the left lower extremity deep venous structures from the common femoral vein through the popliteal vein demonstrates normal compressibility flow and wave patterns in response to respiration and augmentation. Left lower extremity veins below the popliteal vein into the calf could not be assessed due to significant edema. IMPRESSION: Right lower extremity free deep venous thrombosis. <Electronically signed by Alcon Gavin > 10/26/20 [id number]
[2020-10-26 12:19] LABS: INR 1.02; PROTHROMBIN TIME 13.6 SECONDS (12.5-14.3)
[2020-10-26 12:20] LABS: PARTIAL THROMBOPLASTIN TIME 27.4 SECONDS (24.2-38.5)
[2020-10-26 12:45] LABS: RSV AMPLIFICATION NEGATIVE (NEGATIVE)
[2020-10-26] MEDS ORDERED: OMEG100011 PO (14:00)
[2020-10-26 15:45] VITALS: BP 142/72
[2020-10-26] MEDS ORDERED: SLF 3 ML SYR IV PRN (16:25)
--- NOTE | 2020-10-26 16:37 | HPEPDOC ---
General Date of Admission 10/26/20 Date of Service: Oct 26, 2020 Chief Complaint The patient is a 80-year-old female admitted with a reason for visit of SOB. 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 She walked across the house to get her coffee which was quite a long walk without any trouble then she did her usual 1-1/2 hours of prayer sitting in a easy chair. After this as she got up she felt like seeing halos in front of her eyes / dizzy. She was moving around her room when she suddenly started feeling short of breath. She was having difficulty walking in her room doing her usual chores and even walking from the room to the bathroom. She took a shower thinking that it would make her feel better however she continued to be short of breath. The nurse at the [facility] was called. She rested at the [facility] for a while but did not feel any better so she was brought to the emergency room. On arrival to the ED she had a pulse of 122 she was saturating at 94% in room air and her respiratory rate was 22. She had a CT angio of the chest done which showed bilateral pulmonary embolism. She was admitted for acute pulmonary embolism. Home Medications Scheduled Acetaminophen (Tylenol Arthritis) 650 Mg Tab, 650 MG PO BID, (Reported) Aspirin (Aspirin EC) 81 Mg Tab, 81 MG PO DAILY, (Reported) Clonazepam (Clonazepam) 1 Mg Tab, 3 MG PO QHS, (Reported) Cyanocobalamin (Vitamin B-12) (Vitamin B-12) 1,000 Mcg Tab, 1,000 MCG PO DAILY, (Reported) Levothyroxine Sodium (Levothyroxine Sodium) 75 Mcg Tab, 75 MCG PO DAILY, (Reported) Magnesium Oxide (Magnesium Oxide) 400 Mg Tab, 400 MG PO DAILY, (Reported) Naproxen Sodium (Aleve) 220 Mg Capsule, 220 MG PO BID, (Reported) [place]-3 Fatty Acids/Fish Oil ([place] 3 1,000 mg Softgel) 1 Each Capsule, 1,000 MG PO DAILY, (Reported) Omeprazole (Omeprazole) 40 Mg Capsule.dr, 40 MG PO DAILY, (Reported) Allergies Coded Allergies: Penicillins (Verified Allergy, Unknown, 04/26/20) Sulfa (Sulfonamide Antibiotics) (Verified Allergy, Unknown, 04/26/20) quinine (Verified Allergy, Unknown, 04/26/20) Past Medical History Medical History Urethral stricture Overactive bladder Hiatal hernia HYPERCHOLESTEROLEMIA OSTEOARTHRITIS DILATED CARDIOMYOPATHY, LBBB SLEEP APNEA HISTORY OF IRON DEFICIENCY ANEMIA GASTROESOPHAGEAL REFLUX PERIODIC LIMB MOVEMENT DISORDER HYPOTHYROIDISM ALLERGIC RHINITIS BALANCE DISORDER H/O Back surgery CRAMPS, EXTREMITY Right Parotid infection in 2019 Lobulated cystic and solid mass in the right popliteal fossa. Bakers cyst as per ortho. Surgical History BILAT MASTECTOMY FIBROCYSTIC BREAST 1967 TRANSABDOMINAL HYSTERECTOMY BILAT SALPINGOOPHORECTOMY 1987 LUMBAR LAMINECTOMY L5-S1 1988 R TOTAL KNEE REPLACEMENT 1992 L TOTAL KNEE 1993 LAPAROSCOPIC CHOLECYSTECTOMY 1997 REVISION L TOTAL KNEE 1999 L SHOULDER ROTATOR CUFF 2001 L TOTAL KNEE REVISION REPLACEMENT BONE GRAFT 09/02 R KNEE REVISION ARTHROSCOPY,PUNCTAL OCCLUSORS PLACED 06-12-04 COLONOSCOPY 09-07-07 BILATERAL CATARACT EXTRACTION-DR. GARSIA 06/2016 & 06/2016 Family History FATHER HAD DEMENTIA AND HYPOTHYROIDISM-- AGE 89. MOTHER AGE 57 OF GALLBLADDER CANCER. 1 SISTER HAD BREAST CANCER , CLOTS AND ANOTHER SISTER HAD A STROKE AND AGE 62. First Cousin and her children with F[employer] Isamar Puente. 2 of the sons of this cousin had sudden in 2 years . They were in their 50s. Social History * Smoker: Denies Alcohol: Denies Drugs: denies A-FIB/CHADSVASC A-FIB History Current/History of A-Fib/PAF?: No Review of Systems Constitutional: Denies: Chills, Fever, Night Sweats Eyes: Denies: Pain, Vision change ENT: Denies: Head Aches, Ear Pain, Dysphagia Skin: Denies: Rash, Lesions, Breakdown Pulmonary: Reports: Dyspnea; Denies: Cough, Pleuritic Chest Pain Cardiovascular: Reports: Lt Headedness; Denies: Chest Pain, Palpitations, Orthopnea, Paroxysmal Noc. Dyspnea Physical Examination General Exam: Positive: Alert, Cooperative, No Acute Distress Eye Exam: Positive: PERRLA, Conjunctiva & lids normal, EOMI; Negative: Sclera icteric ENT Exam: Positive: Atraumatic, Mucous membr. moist/pink, Pharynx Normal Neck Exam: Positive: Supple; Negative: JVD, thyromegaly Chest Exam: Positive: Clear to auscultation, Normal air movement Heart Exam: Positive: Tachycardic, Regular Rhythm, Normal S1, Normal S2; Negative: Murmurs, Rubs Abdomen Exam: Positive: Normal bowel sounds, Soft; Negative: Tenderness Extremity Exam: Negative: Clubbing, Cyanosis, Edema Neuro Exam: Positive: Normal Speech, Strength at 5/5 X4 ext, Normal Tone Psych Exam: Positive: Memory Intact, Oriented x 3 Vital Signs Vital Signs Date Time Temp Pulse Resp B/P (MAP) Pulse Ox O2 Delivery O2 Flow Rate FiO2 10/26/20 09:40 96.8 122 24 186/92 (123) 94 Room Air Laboratory Data Labs 24H Laboratory Tests 2 10/26/20 09:53: Immature Granulocyte % (Auto) 0.2, Neutrophils (%) (Auto) 82.8H, Lymphocytes (%) (Auto) 9.8L, Monocytes (%) (Auto) 5.5, Eosinophils (%) (Auto) 1.2, Basophils (%) (Auto) 0.5, Neutrophils # (Auto) 8.5, Lymphocytes # (Auto) 1.0L, Monocytes # (Auto) 0.6, Eosinophils # (Auto) 0.1, Basophils # (Auto) 0.1, Nucleated Red Blood Cells % (auto) 0.0 10/26/20 10:15: POC Glucose (Misc Panel) 154H, POC Sodium (Misc Panel) 143, POC Potassium (Misc Panel) 3.6, POC Chloride (Misc Panel) 104, POC Total CO2 (Misc Panel) 20.0L, POC Blood Urea Nitrogen (Misc Panel 22, POC Ionized Calcium (Misc Panel) 4.9, POC Creatinine (Misc Panel) 0.8, POC Hematocrit (Misc Panel) 41.0 10/26/20 10:17: POC Troponin I (Misc) 0.07 10/26/20 10:20: Lactic Acid Level 3.1*H CBC/BMP Laboratory Tests 10/26/20 09:53 Assessment/Plan 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 She walked across the house to get her coffee which was quite a long walk without any trouble then she did her usual 1-1/2 hours of prayer sitting in a easy chair. After this as she got up she felt like seeing halos in front of her eyes / dizzy. She was moving around her room when she suddenly started feeling short of breath. She was having difficulty walking in her room doing her usual chores and even walking from the room to the bathroom. She took a shower thinking that it would make her feel better however she continued to be short of breath. The nurse at the [facility] was called. She rested at the [facility] for a while but did not feel any better so she was brought to the emergency room. On arrival to the ED she had a pulse of 122 she was saturating at 94% in room air and her respiratory rate was 22. She had a CT angio of the chest done which showed bilateral pulmonary embolism. She was admitted for acute pulmonary embolism. Acute pulmonary embolism with acute right lower extremity DVT. Vascular US: demonstrates acute thrombus from the proximal femoral vein to the popliteal/peroneal trunk. CT angio of Chest: Extensive pulmonary emboli are identified within the right and left main pulmonary arteries extending into the left lower lobe and right lower lobe branches. will start on eliquis sent hypercoagulable work up. Bed rest with bed side commode. Hypothyroid synthroid Osteoarthritis tylenol GERD/Hiatal hernia omeprazole Plan / VTE VTE Prophylaxis Ordered?: Yes EVANGELISTA LAKHANI MD Oct 26, 2020 11:50
[2020-10-26] MEDS: APIXABAN 5 MG TAB (ELIQUIS) PO SCH (20:40)
[2020-10-26] MEDS: ACETAMINOPHEN 500 MG TAB PO SCH (20:41)
[2020-10-26] MEDS: clonazePAM 1 MG TAB PO SCH (20:42)
[2020-10-26] MEDS: SLF 3 ML SYR IV SCH (20:45)
[2020-10-26 21:10] VITALS: BP 160/73
[2020-10-27] VITALS (8 sets, daily range): BP systolic 80–153; BP diastolic 48–87
[2020-10-27] MEDS ORDERED: NS 500 ML IV ONE (00:40)
[2020-10-27] MEDS ORDERED: NS 1,000 ML IV ONE (01:25)
[2020-10-27 05:26] LABS: BASO # 0.1 10^3/uL (0.0-0.2); BASO % 0.6 % (0.0-1.0); EOS # 0.3 10^3/uL (0.0-0.5); EOS % 4.2 % (0.0-3.0); HEMATOCRIT 37.5 % (36.0-47.0); LYMPH % 25.2 % (24.0-44.0); MEAN CORPUSCULAR HEMOGLOBIN 29.3 pg (27.0-33.0); MEAN CORPUSCULAR VOLUME 91.5 fl (80.0-96.0); MONO # 0.7 10^3/uL (0.0-0.8); MONO % 8.3 % (2.0-8.0); NEUTROPHILS # 4.8 10^3/uL (1.5-8.5); NEUTROPHILS % 61.4 % (36.0-66.0); PLATELET COUNT, AUTOMATED 242 10^3/uL (150-450); WHITE BLOOD COUNT 7.9 10^3/uL (4.0-10.0)
[2020-10-27 05:44] LABS: BLOOD UREA NITROGEN 23 MG/DL (7-18); CALCIUM LEVEL 8.8 MG/DL (8.8-10.2); CARBON DIOXIDE LEVEL 25 MEQ/L (21-32); CHLORIDE LEVEL 111 MEQ/L (98-107); CREATININE FOR GFR 0.84 MG/DL (0.55-1.30); GLOMERULAR FILTRATION RATE > 60.0 (>39); GLUCOSE, FASTING 98 MG/DL (70-100); POTASSIUM SERUM 4.1 MEQ/L (3.5-5.1); SODIUM LEVEL 144 MEQ/L (136-145)
[2020-10-27] MEDS: LEVOTHYROXINE 75MCG TABLET (0.075MG) PO SCH (06:06)
[2020-10-27] MEDS: SLF 3 ML SYR IV SCH ×3 (06:10→21:10)
[2020-10-27] MEDS: CYANOCOBALAMIN 500 MCG TAB PO SCH (09:39)
[2020-10-27] MEDS: OMEPRAZOLE 20 MG CAP PO SCH (09:40)
[2020-10-27] MEDS: APIXABAN 5 MG TAB (ELIQUIS) PO SCH ×2 (09:40→21:06)
[2020-10-27] MEDS: ACETAMINOPHEN 500 MG TAB PO SCH ×2 (09:40→21:07)
[2020-10-27] MEDS ORDERED: ELIQ5TAB PO (09:44)
[2020-10-27] MEDS ORDERED: traMADol 50 MG TAB PO PRN (09:45)
--- NOTE | 2020-10-27 09:47 | IPNPDOC ---
Subjective Date Seen The patient was seen on 10/27/20. Subjective Chief Complaint/HPI She did have an episode of hypotension at night responded to IVF. No SOB at rest. Reports that she could not sleep last night as her arthritis was bothering her too much. Objective Physical Examination General Exam: Positive: Alert, Cooperative, No Acute Distress Eye Exam: Positive: PERRLA, Conjunctiva & lids normal, EOMI; Negative: Sclera icteric ENT Exam: Positive: Atraumatic, Mucous membr. 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 She walked across the house to get her coffee which was quite a long walk without any trouble then she did her usual 1-1/2 hours of prayer sitting in a easy chair. After this as she got up she felt like seeing halos in front of her eyes / dizzy. She was moving around her room when she suddenly started feeling short of breath. She was having difficulty walking in her room doing her usual chores and even walking from the room to the bathroom. She took a shower thinking that it would make her feel better however she continued to be short of breath. The nurse at the [facility] was called. She rested at the [facility] for a while but did not feel any better so she was brought to the emergency room. On arrival to the ED she had a pulse of 122 she was saturating at 94% in room air and her respiratory rate was 22. She had a CT angio of the chest done which showed bilateral pulmonary embolism. She was admitted for acute pulmonary embolism. Acute pulmonary embolism with acute right lower extremity DVT. Vascular US: demonstrates acute thrombus from the proximal femoral vein to the popliteal/peroneal trunk. CT angio of Chest: Extensive pulmonary emboli are identified within the right and left main pulmonary arteries extending into the left lower lobe and right lower lobe branches. will start on eliquis sent hypercoagulable work up. Bed rest with bed side commode x 72 hours then slowly mobilize TRI may use own CPAP. Hypothyroid synthroid Osteoarthritis, b/l knees, hips tylenol, tramadol, tizanidine prn. GERD/Hiatal hernia omeprazole insomnia/ anxiety clonapin. Plan/VTE VTE Prophylaxis Ordered?: Yes VS, I&O, 24H, Fishbone Vital Signs/I&O Vital Signs Date Time Temp Pulse Resp B/P (MAP) Pulse Ox O2 Delivery O2 Flow Rate FiO2 10/27/20 04:29 97.1 91 20 146/87 (106) 95 NIPPV (BIPAP/CPAP) I&O- Last 24 Hours up to 6 AM 10/27/20 06:00 Intake Total 240 ml Output Total 2050 ml Balance -1810 ml Laboratory Data 24H LABS Laboratory Tests 2 10/26/20 09:53: Immature Granulocyte % (Auto) 0.2, Neutrophils (%) (Auto) 82.8H, Lymphocytes (%) (Auto) 9.8L, Monocytes (%) (Auto) 5.5, Eosinophils (%) (Auto) 1.2, Basophils (%) (Auto) 0.5, Neutrophils # (Auto) 8.5, Lymphocytes # (Auto) 1.0L, Monocytes # (Auto) 0.6, Eosinophils # (Auto) 0.1, Basophils # (Auto) 0.1, Nucleated Red Blood Cells % (auto) 0.0 10/26/20 10:15: POC Glucose (Misc Panel) 154H, POC Sodium (Misc Panel) 143, POC Potassium (Misc Panel) 3.6, POC Chloride (Misc Panel) 104, POC Total CO2 (Misc Panel) 20.0L, POC Blood Urea Nitrogen (Misc Panel 22, POC Ionized Calcium (Misc Panel) 4.9, POC Creatinine (Misc Panel) 0.8, POC Hematocrit (Misc Panel) 41.0 10/26/20 10:17: POC Troponin I (Misc) 0.07 10/26/20 10:20: Lactic Acid Level 3.1*H 10/26/20 11:59: Prothrombin Time 13.6, Prothromb Time International Ratio 1.02, Activated Partial Thromboplast Time 27.4, Coronavirus (COVID-19)(PCR) NEGATIVE, Influenza Type A (RT-PCR) NEGATIVE, Influenza Type B (RT-PCR) NEGATIVE, Respiratory Syncytial Virus (PCR) NEGATIVE 10/26/20 14:34: Lactic Acid Followup at 4 Hours 2.0 10/27/20 05:03: Immature Granulocyte % (Auto) 0.3, Neutrophils (%) (Auto) 61.4, Lymphocytes (%) (Auto) 25.2, Monocytes (%) (Auto) 8.3H, Eosinophils (%) (Auto) 4.2H, Basophils (%) (Auto) 0.6, Neutrophils # (Auto) 4.8, Lymphocytes # (Auto) 2.0, Monocytes # (Auto) 0.7, Eosinophils # (Auto) 0.3, Basophils # (Auto) 0.1, Nucleated Red Blood Cells % (auto) 0.0, Anion Gap 8, Glomerular Filtration Rate > 60.0, Calcium Level 8.8 CBC/BMP Laboratory Tests 10/26/20 09:53 10/27/20 05:03 EVANGELISTA LAKHANI MD Oct 27, 2020 06:50
[2020-10-27] MEDS ORDERED: tiZANidine 4 MG TAB PO ONE (09:50)
[2020-10-27] MEDS ORDERED: PILL CUTTER 1 EACH XX PRN (10:00)
[2020-10-27] MEDS: clonazePAM 1 MG TAB PO SCH (21:09)
--- NOTE | 2020-10-27 22:28 | ECGEPIP ---
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
[2020-10-28 00:01] VITALS: BP 146/70
[2020-10-28 04:09] VITALS: BP 119/59
[2020-10-28 05:35] LABS: BASO % 0.5 % (0.0-1.0); EOS # 0.5 10^3/uL (0.0-0.5); EOS % 5.8 % (0.0-3.0); HEMATOCRIT 37.6 % (36.0-47.0); LYMPH # 1.9 10^3/uL (1.5-5.0); LYMPH % 23.7 % (24.0-44.0); MEAN CORPUSCULAR HEMOGLOBIN 28.8 pg (27.0-33.0); MEAN CORPUSCULAR HGB CONC 31.9 g/dl (32.0-36.5); MEAN CORPUSCULAR VOLUME 90.4 fl (80.0-96.0); MONO # 0.8 10^3/uL (0.0-0.8); MONO % 9.7 % (2.0-8.0); NEUTROPHILS # 4.7 10^3/uL (1.5-8.5); PLATELET COUNT, AUTOMATED 241 10^3/uL (150-450); RED BLOOD COUNT 4.16 10^6/uL (4.00-5.40); WHITE BLOOD COUNT 7.8 10^3/uL (4.0-10.0)
[2020-10-28 05:53] LABS: BLOOD UREA NITROGEN 22 MG/DL (7-18); CALCIUM LEVEL 8.8 MG/DL (8.8-10.2); CARBON DIOXIDE LEVEL 25 MEQ/L (21-32); CHLORIDE LEVEL 111 MEQ/L (98-107); CREATININE FOR GFR 0.84 MG/DL (0.55-1.30); GLOMERULAR FILTRATION RATE > 60.0 (>39); GLUCOSE, FASTING 100 MG/DL (70-100); SODIUM LEVEL 141 MEQ/L (136-145)
[2020-10-28] MEDS: LEVOTHYROXINE 75MCG TABLET (0.075MG) PO SCH (06:21)
[2020-10-28] MEDS: SLF 3 ML SYR IV SCH (06:21)
[2020-10-28 08:00] VITALS: BP 136/68
[2020-10-28] MEDS: OMEPRAZOLE 20 MG CAP PO SCH (10:09)
[2020-10-28] MEDS: APIXABAN 5 MG TAB (ELIQUIS) PO SCH (10:11)
[2020-10-28] MEDS: CYANOCOBALAMIN 500 MCG TAB PO SCH (10:11)
[2020-10-28] MEDS: ACETAMINOPHEN 500 MG TAB PO SCH (10:11)
--- NOTE | 2020-10-28 10:52 | DS.PDOC ---
Discharge Summary General Date of Admission Oct 26, 2020 at 12:10 Date of Discharge 10/28/20 Discharge Summary PROCEDURES PERFORMED DURING STAY: [None]. ADMITTING/DISCHARGE DIAGNOSES: 1. Acute pulmonary embolism with acute right lower extremity DVT COMPLICATIONS/CHIEF COMPLAINT: Multiple Pulmonary Emboli. 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 She walked across the house to get her coffee which was quite a long walk without any trouble then she did her usual 1-1/2 hours of prayer sitting in a easy chair. After this as she got up she felt like seeing halos in front of her eyes / dizzy. She was moving around her room when she suddenly started feeling short of breath. She was having difficulty walking in her room doing her usual chores and even walking from the room to the bathroom. She took a shower thinking that it would make her feel better however she continued to be short of breath. The nurse at the [facility] was called. She rested at the [facility] for a while but did not feel any better so she was brought to the emergency room. On arrival to the ED she had a pulse of 122 she was saturating at 94% in room air and her respiratory rate was 22. She had a CT angio of the chest done which showed bilateral pulmonary embolism. She was admitted for acute pulmonary embolism as well as right lower extremity DVT. Her breathing improved during her hospital stay she was saturating at 95% on room air at time of discharge without any respiratory distress. She was started on eliquis 10 mg twice a day for 7 days followed by 5 mg twice a day. Patient was instructed to follow-up with her primary care physician and referral to hematology to obtain hypercoagulability workup if seen as appropriate by smoke jumper supervisor and for guidance on duration of therapy. DISCHARGE MEDICATIONS: Please see below. ALLERGIES: Please see below. PHYSICAL EXAMINATION ON DISCHARGE: VITAL SIGNS: Please see below. Constitutional: Awake and alert, in no apparent distress ENT: Sclera are clear. Mucosa is moist. Respiratory: Lungs CTA bilaterally. No respiratory distress. No use of accessory muscles. Saturating at 95% on room air Cardiovascular: Regular rate and rhythm Gastrointestinal: Abdomen is soft, non distended, non tender Musculoskeletal: No lower extremity edema Neurologic: No focal neurological deficit. Mental Status: A&O x3, normal affect LABORATORY DATA: Please see below. IMAGING: LE US IMPRESSION: Right lower extremity free deep venous thrombosis. CT angio chest: IMPRESSION: Extensive pulmonary emboli in the right and left main pulmonary arteries with extension into the lower lobes. No associated pulmonary parenchymal changes currently identified PROGNOSIS: Fair ACTIVITY: [As tolerated]. DIET: 2 g sodium diet DISPOSITION: Home DISCHARGE INSTRUCTIONS: Please follow up with your primary care physician within 1 week from discharge. If you do not have one, please follow up with us to schedule an appointment. Please keep all of your follow up appointments. Please call central to book your appointments with hospital specialists. Please take all your medications as prescribed. Please call/come to Clinic or go to the Emergency Department if - Temp >101, intractable Nausea/Vomiting, Diarrhea, Mouth sores, Headaches, Altered mental status, Seizures, sudden onset of swelling, bleeding, shortness of breath or chest pain. ITEMS TO FOLLOWUP ON ON OUTPATIENT: 1. Taker ky as prescribed 2. Follow-up with smoke jumper supervisor and primary care physician DISCHARGE CONDITION: [Stable]. TIME SPENT ON DISCHARGE: 35 minutes. Vital Signs/I&Os Vital Signs Date Time Temp Pulse Resp B/P (MAP) Pulse Ox O2 Delivery O2 Flow Rate FiO2 10/28/20 08:00 98.5 85 26 136/68 (90) 95 NIPPV (BIPAP/CPAP) I&O- Last 24 Hours up to 6 AM 10/28/20 06:00 Intake Total 1040 ml Output Total 1850 ml Balance -810 ml Laboratory Data Labs 24H Laboratory Tests 2 10/27/20 13:31: Lab Scanned Report Miscellaneous Lab 10/27/20 13:50: Lab Scanned Report Miscellaneous Lab 10/28/20 05:05: Immature Granulocyte % (Auto) 0.3, Neutrophils (%) (Auto) 60.0, Lymphocytes (%) (Auto) 23.7L, Monocytes (%) (Auto) 9.7H, Eosinophils (%) (Auto) 5.8H, Basophils (%) (Auto) 0.5, Neutrophils # (Auto) 4.7, Lymphocytes # (Auto) 1.9, Monocytes # (Auto) 0.8, Eosinophils # (Auto) 0.5, Basophils # (Auto) 0.0, Nucleated Red Blood Cells % (auto) 0.0, Anion Gap 5L, Glomerular Filtration Rate > 60.0, Calcium Level 8.8 CBC/BMP Laboratory Tests 10/28/20 05:05 Discharge Medications Scheduled Acetaminophen (Tylenol Arthritis) 650 Mg Tab, 650 MG PO BID, (Reported) Apixaban (Eliquis) 5 Mg Tablet, 5 MG PO ASDIRECTED 10 MG (2 TABS) TWICE PER DAY FOR 4 DAYS THEN 5 MG (1 TAB) TWICE PER DAY Aspirin (Aspirin EC) 81 Mg Tab, 81 MG PO DAILY, (Reported) Clonazepam (Clonazepam) 1 Mg Tab, 3 MG PO QHS, (Reported) Cyanocobalamin (Vitamin B-12) (Vitamin B-12) 1,000 Mcg Tab, 1,000 MCG PO DAILY, (Reported) Levothyroxine Sodium (Levothyroxine Sodium) 75 Mcg Tab, 75 MCG PO DAILY, (Reported) Magnesium Oxide (Magnesium Oxide) 400 Mg Tab, 400 MG PO DAILY, (Reported) Naproxen Sodium (Aleve) 220 Mg Capsule, 220 MG PO BID, (Reported) [place]-3 Fatty Acids/Fish Oil ([place] 3 1,000 mg Softgel) 1 Each Capsule, 1,000 MG PO DAILY, (Reported) Omeprazole (Omeprazole) 40 Mg Capsule.dr, 40 MG PO DAILY, (Reported) Allergies Coded Allergies: Penicillins (Verified Allergy, Unknown, 04/26/20) Sulfa (Sulfonamide Antibiotics) (Verified Allergy, Unknown, 04/26/20) quinine (Verified Allergy, Unknown, 04/26/20) ROSSY CHOI MD Oct 28, 2020 10:52
[2020-10-28 12:00] VITALS: BP 134/65
[2020-10-29] MEDS ORDERED: ELIQ5TAB PO (17:31)
== END 2020-10-28 13:42 | disposition home or self-care (01) | DRG 299 ==
LOC: M ED 09:29 → EDBD 09:29 → M ED INP 12:10 → ENRESERV 15:06 → M PCU 15:40
PROVIDERS: ADMIT Internal Medicine Nephrology; ATTEND Family Medicine
DX: I82.411 Acute embolism and thrombosis of right femoral vein (principal); I26.99 Other pulmonary embolism without acute cor pulmonale; I42.0 Dilated cardiomyopathy; I82.431 Acute embolism and thrombosis of right popliteal vein; E03.9 Hypothyroidism, unspecified; K44.9 Diaphragmatic hernia without obstruction or gangrene; K21.9 Gastro-esophageal reflux disease without esophagitis; N32.81 Overactive bladder; E78.00 Pure hypercholesterolemia, unspecified; G47.30 Sleep apnea, unspecified; G47.61 Periodic limb movement disorder; J30.9 Allergic rhinitis, unspecified; M16.0 Bilateral primary osteoarthritis of hip; F41.9 Anxiety disorder, unspecified; Z90.13 Acquired absence of bilateral breasts and nipples; Z96.653 Presence of artificial knee joint, bilateral; Z90.49 Acquired absence of other specified parts of digestive tract; Z98.41 Cataract extraction status, right eye; Z98.42 Cataract extraction status, left eye; Z79.82 Long term (current) use of aspirin; Z79.899 Other long term (current) drug therapy; Z88.0 Allergy status to penicillin; Z88.8 Allergy status to other drugs, medicaments and biological substances; Z88.2 Allergy status to sulfonamides; Z20.822 Contact with and (suspected) exposure to COVID-19

== ENCOUNTER 2020-10-29 13:55 | Inpatient (IN) | payer MEDICARE, BC, MEDICAID ==
[~2020-10-29] VITALS: Ht 160 cm; Wt 96.5 kg
[~2020-10-29 13:55] MED LIST changes: +ELIQ5TAB PO; +NAPR220C14 PO; +OMEG100011 PO; +OMEP-221 PO
[2020-10-29] MEDS ORDERED: ELIQ5TAB PO (17:31)
[2020-10-29 17:38] LABS: BASO % 0.5 % (0.0-1.0); EOS # 0.4 10^3/uL (0.0-0.5); EOS % 5.1 % (0.0-3.0); HEMATOCRIT 40.7 % (36.0-47.0); HEMOGLOBIN 13.3 g/dl (12.0-15.5); LYMPH # 2.1 10^3/uL (1.5-5.0); LYMPH % 27.1 % (24.0-44.0); MEAN CORPUSCULAR HEMOGLOBIN 29.6 pg (27.0-33.0); MEAN CORPUSCULAR HGB CONC 32.7 g/dl (32.0-36.5); MEAN CORPUSCULAR VOLUME 90.4 fl (80.0-96.0); MONO # 0.6 10^3/uL (0.0-0.8); MONO % 7.1 % (2.0-8.0); NEUTROPHILS # 4.7 10^3/uL (1.5-8.5); NEUTROPHILS % 59.9 % (36.0-66.0); PLATELET COUNT, AUTOMATED 320 10^3/uL (150-450); WHITE BLOOD COUNT 7.8 10^3/uL (4.0-10.0)
[2020-10-29 17:49] LABS: INR 1.28; PROTHROMBIN TIME 16.3 SECONDS (12.5-14.3)
[2020-10-29 18:04] LABS: BLOOD UREA NITROGEN 21 MG/DL (7-18); CALCIUM LEVEL 9.2 MG/DL (8.8-10.2); CARBON DIOXIDE LEVEL 27 MEQ/L (21-32); CHLORIDE LEVEL 109 MEQ/L (98-107); GLOMERULAR FILTRATION RATE > 60.0 (>39); GLUCOSE, FASTING 115 MG/DL (70-100); POTASSIUM SERUM 4.3 MEQ/L (3.5-5.1); SODIUM LEVEL 141 MEQ/L (136-145)
[2020-10-29 18:05] LABS: ALBUMIN 3.7 GM/DL (3.2-5.2); ALT/SGPT 23 U/L (12-78); BILIRUBIN,TOTAL 0.3 MG/DL (0.2-1.0); MAGNESIUM LEVEL 2.3 MG/DL (1.8-2.4); TOTAL PROTEIN 7.7 GM/DL (6.4-8.2)
[2020-10-29] MEDS ORDERED: HEPARIN SOD (PORCINE) 5000UNITS/ML 1ML VIAL/SYRINGE IV PRN (18:30)
[2020-10-29] MEDS ORDERED: HEPARIN DRIP 25,000 UNITS in IV 1 EA IV SCH ×2 (18:30→18:35)
--- NOTE | 2020-10-29 19:02 | HPEPDOC ---
General Date of Admission 10/29/2020 Date of Service: Oct 29, 2020 Primary Care Physician: Jose Armenta Attending Physician: SIMA SZYMANSKI MD Chief Complaint The patient is a 80-year-old female admitted with a reason for visit of Per Dr Armenta. History of Present Illness Presenting compliant: History of present illness: 80-year-old female patient who was sent to ED from PCP clinic due to concern for thrombus load on evaluation in the clinic. Patient was admitted 3 days ago and in hospital for multiple PE and bilateral lungs and clot in the right leg and was discharged yesterday on Eliquis. On examination in the PCP clinic today PCP felt that her thrombus burden load was high and which can be detrimental to the patient and recommended to go to the ED and be admitted in the hospital to get IVC filter placed in by Dr. Le tomorrow. Past medical history: Urethral stricture Overactive bladder HYPERCHOLESTEROLEMIA OSTEOARTHRITIS DILATED CARDIOMYOPATHY, LBBB SLEEP APNEA GASTROESOPHAGEAL REFLUX Restless leg syndrome HYPOTHYROIDISM ALLERGIC RHINITIS H/O Back surgery CRAMPS, EXTREMITY Lobulated cystic and solid mass in the right popliteal fossa. Bakers cyst as per ortho. 3 days ago hospitalized for multiple PE from clots in her leg Past surgical history: BILAT MASTECTOMY FIBROCYSTIC BREAST 1968 TRANSABDOMINAL HYSTERECTOMY BILAT SALPINGOOPHORECTOMY 1987 LUMBAR LAMINECTOMY L5-S1 1988 R TOTAL KNEE REPLACEMENT 1992 L TOTAL KNEE 1993 LAPAROSCOPIC CHOLECYSTECTOMY 1998 REVISION L TOTAL KNEE 2000 L SHOULDER ROTATOR CUFF 2001 L TOTAL KNEE REVISION REPLACEMENT BONE GRAFT 09/02 R KNEE REVISION ARTHROSCOPY,PUNCTAL OCCLUSORS PLACED 06-12-04 COLONOSCOPY 09-07-07 BILATERAL CATARACT EXTRACTION-DR. GARSIA 06/2016 & 06/2016 Social history: Denies smoking, alcohol, drugs Family History: FATHER HAD DEMENTIA AND HYPOTHYROIDISM-- AGE 89. MOTHER AGE 57 OF GALLBLADDER CANCER. 1 SISTER HAD BREAST CANCER , CLOTS AND ANOTHER SISTER HAD A STROKE AND AGE 62. First Cousin and her children with Facter Isamar Puente. 2 of the sons of this cousin had sudden in 2 years . They were in their 50s. REVIEW OF SYSTEMS: Constitutional: Denies having fever, chills, night sweats, weight loss, headaches. Eyes: Denies any blurry vision or double vision. ENT: Denies any dysphagia, odynophagia, ear discharge. Cardiovascular: Denies any chest pain or palpitations. Respiratory: Denies shortness of breath and cough. Gastrointestinal (GI): Denies any nausea or vomiting. Genitourinary: Denies dysuria, hematuria. Musculoskeletal: Denies any muscle aches and pains. Skin: Denies any rashes or ulcers. Endocrine: Denies cold intolerance, heat intolerance, polydipsia, polyphagia, polyuria All other review of systems is negative. PHYSICAL EXAMINATION: General: Patient is awake, alert, oriented times three, laying in bed , no apparent distress. Eyes: Conjunctiva clear, pupils equal round and reactive to light and accommodation. ENT: Hearing Bilateral normal. No nasal deviation, oropharynx clear with no lesions/erythema. Neck: supple, no masses, trachea midline, no thyroid nodules, masses, tenderness or enlargement. Cardiovascular: S1, S2, normal rhythm, no murmur. Respiratory: Chest is clear to auscultation bilaterally, No rhonchi, wheezes or rubs. Abdomen: Soft, bowel sounds positive, no bruits. Nontender on palpation. Liver edge, spleen, kidney not felt, no masses. Extremities: No clubbing or cyanosis. No pitting edema. has tenderness, sensitivity of the legs. Could not appreciate pulses in the bilateral feet on palpation. 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 Skin: No rashes, lesions, ulcerations, subcutaneous nodules or induration. Pertinent Diagnostic tests: LABS: Ultrasound done on 10/26/2020: Reported:FINDINGS: Ultrasound examination of the right lower extremity demonstrates acute thrombus from the proximal femoral vein to the popliteal/peroneal trunk. Right lower extremity veins below the trunk into the calf could not be assessed due to significant edema. Complex Willoughby's cyst in the popliteal fossa noted measuring 7.9 x 5.0 x 5.6 cm. Ultrasound examination of the left lower extremity deep venous structures from the common femoral vein through the popliteal vein demonstrates normal compressibility flow and wave patterns in response to respiration and augmentation. Left lower extremity veins below the popliteal vein into the calf could not be assessed due to significant edemaas right lower extremity free deep vein thrombosis Assessment: 80-year-old female patient with recent history of multiple PE admitted 3 days ago in the hospital and was discharged yesterday with Mariah. Today on appointment with the PCP patient did not have any symptoms but on examination had clot extending up till her hip and her leg and was sent to the ED for placement of IVC filter and further management. Plan: S/p PE from clot in her leg: -Given the extension of her clot in the leg [the clot was extending from her knee to the hip] she will be getting an IVC filter placed in by Dr. Le tomorrow. -We will stop Eliquis and start her on heparin drip at a maintenance dose. -Will monitor troponin trend to see if there is any strain on the heart, to see if patient will need thrombolysis of the clots in the lung. -Clinically, patient appears to be stable, not reporting any significant shortness of breath, speaking in full sentences, hemodynamically stable - not tachycardic -We will also get an echocardiogram. -We will keep patient on bedrest. -All the anticoagulation work-up was done during the recent admission 3 days ago and the results protein C protein S, Antithrombin III antigen and activity, factor V Leiden, factor II mutation, anticardiolipin antibody IgG IgA and IgM are still pending. Hypothyroidism: -We will continue her home medication of levothyroxine Osteoarthritis: -We will continue Tylenol GERD: -We will continue her home medication of omeprazole. Restless leg syndrome: -We will continue clonazepam DVT prophylaxis: -On heparin drip. Disposition: Likely discharge tomorrow after the procedure. Home Medications Scheduled Acetaminophen (Tylenol Arthritis) 650 Mg Tab, 650 MG PO BID, (Reported) Aspirin (Aspirin EC) 81 Mg Tab, 81 MG PO DAILY, (Reported) Clonazepam (Clonazepam) 1 Mg Tab, 3 MG PO QHS, (Reported) Cyanocobalamin (Vitamin B-12) (Vitamin B-12) 1,000 Mcg Tab, 1,000 MCG PO DAILY, (Reported) Enoxaparin Sodium (Enoxaparin Sodium) 40 Mg/0.4 Ml Syringe, 40 MG SC BID Enoxaparin 100 mg SQ BID x 30 days - please adjust syringe dose as needed - Prior authorization completed Levothyroxine Sodium (Levothyroxine Sodium) 75 Mcg Tab, 75 MCG PO DAILY, (Reported) Magnesium Oxide (Magnesium Oxide) 400 Mg Tab, 400 MG PO DAILY, (Reported) Naproxen Sodium (Aleve) 220 Mg Capsule, 220 MG PO BID, (Reported) [place]-3 Fatty Acids/Fish Oil ([place] 3 1,000 mg Softgel) 1 Each Capsule, 1,000 MG PO DAILY, (Reported) Omeprazole (Omeprazole) 40 Mg Capsule.dr, 40 MG PO DAILY, (Reported) Allergies Coded Allergies: Penicillins (Verified Allergy, Unknown, 04/26/20) Sulfa (Sulfonamide Antibiotics) (Verified Allergy, Unknown, 04/26/20) quinine (Verified Allergy, Unknown, 04/26/20) A-FIB/CHADSVASC A-FIB History Current/History of A-Fib/PAF?: No Current PO Anticoag Therapy: No Vital Signs Vital Signs Date Time Temp Pulse Resp B/P (MAP) Pulse Ox O2 Delivery O2 Flow Rate FiO2 10/29/20 17:30 92 155/91 (112) 95 Room Air 10/29/20 16:30 18 10/29/20 14:06 96.4 Laboratory Data Labs 24H Laboratory Tests 2 10/29/20 16:47: Immature Granulocyte % (Auto) 0.3, Neutrophils (%) (Auto) 59.9, Lymphocytes (%) (Auto) 27.1, Monocytes (%) (Auto) 7.1, Eosinophils (%) (Auto) 5.1H, Basophils (%) (Auto) 0.5, Neutrophils # (Auto) 4.7, Lymphocytes # (Auto) 2.1, Monocytes # (Auto) 0.6, Eosinophils # (Auto) 0.4, Basophils # (Auto) 0.0, Nucleated Red Blood Cells % (auto) 0.0, Prothrombin Time 16.3H, Prothromb Time International R atio 1.28, Activated Partial Thromboplast Time 35.0, Anion Gap 5L, Glomerular Filtration Rate > 60.0, Calcium Level 9.2, Magnesium Level 2.3, Total Bilirubin 0.3, Aspartate Amino Transf (AST/SGOT) 21, Alanine Aminotransferase (ALT/SGPT) 23, Alkaline Phosphatase 93, Total Protein 7.7, Albumin 3.7, Albumin/Globulin Ratio 0.9L CBC/BMP Laboratory Tests 10/29/20 16:47 Plan / VTE VTE Prophylaxis Ordered?: Yes GME ATTESTATION GME ATTESTATION My faculty preceptor for this patient encounter was physically present during t he encounter and was fully available. All aspects of the patient interview, examination, medical decision making process, and medical care plan development were reviewed and approved by the faculty preceptor. The faculty preceptor is aware and concurs with the plan as stated in the body of this note and will attest to such by his/her cosignature. ATTENDING NOTE I, Sima Szymanski, have independently examined this patient and performed my own physical exam, as well as reviewed the documentation and edited where necessary. I have discussed in detail with the resident / student the findings and plan of treatment as documented by the resident / student and edited their note. I agree with their findings and treatment plan and have edited their documentation. I will continue to follow the patient during this hospital stay. Rebecca Munoz MD Oct 29, 2020 19:02 SIMA SZYMANSKI MD Oct 29, 2020 21:44
[2020-10-29 20:05] LABS: CK-MB VALUE MASS 1.2 NG/ML (<3.6); CPK CREATINE PHOSPHOKINASE 52 U/L (26-192); MB/CK RELATIVE INDEX 2.31 (< OR =4); TROPONIN I < 0.02 NG/ML (< 0.10)
[2020-10-29] MEDS ORDERED: clonazePAM 1 MG TAB PO SCH (21:00)
[2020-10-29] MEDS ORDERED: MOM 30ML SUSPENSION UDC PO PRN (21:40)
[2020-10-29] MEDS ORDERED: ACETAMINOPHEN TAB 650MG DOSE (2X325MG) PO PRN (21:40)
[2020-10-29 21:41] LABS: RSV AMPLIFICATION NEGATIVE (NEGATIVE)
[2020-10-29 22:42] VITALS: BP 156/77
[2020-10-29] MEDS: ACETAMINOPHEN 650MG ER TAB (TYLENOL ARTHRITIS) PO SCH (23:14)
[2020-10-30] VITALS (14 sets, daily range): BP systolic 108–156; BP diastolic 58–81
[2020-10-30 02:22] LABS: CK-MB VALUE MASS 1.2 NG/ML (<3.6); CPK CREATINE PHOSPHOKINASE 40 U/L (26-192); TROPONIN I < 0.02 NG/ML (< 0.10)
[2020-10-30] MEDS ORDERED: LEVOTHYROXINE 75MCG TABLET (0.075MG) PO SCH ×2 (06:00→09:00)
[2020-10-30 07:01] LABS: BASO # 0.1 10^3/uL (0.0-0.2); BASO % 0.9 % (0.0-1.0); EOS # 0.5 10^3/uL (0.0-0.5); EOS % 7.2 % (0.0-3.0); HEMATOCRIT 38.8 % (36.0-47.0); HEMOGLOBIN 12.7 g/dl (12.0-15.5); LYMPH # 1.8 10^3/uL (1.5-5.0); LYMPH % 25.9 % (24.0-44.0); MEAN CORPUSCULAR HEMOGLOBIN 29.4 pg (27.0-33.0); MEAN CORPUSCULAR HGB CONC 32.7 g/dl (32.0-36.5); MEAN CORPUSCULAR VOLUME 89.8 fl (80.0-96.0); MONO # 0.5 10^3/uL (0.0-0.8); MONO % 7.7 % (2.0-8.0); PLATELET COUNT, AUTOMATED 278 10^3/uL (150-450); RED BLOOD COUNT 4.32 10^6/uL (4.00-5.40); WHITE BLOOD COUNT 6.8 10^3/uL (4.0-10.0)
[2020-10-30 07:30] LABS: BLOOD UREA NITROGEN 23 MG/DL (7-18); CALCIUM LEVEL 8.7 MG/DL (8.8-10.2); CARBON DIOXIDE LEVEL 27 MEQ/L (21-32); CHLORIDE LEVEL 110 MEQ/L (98-107); CPK CREATINE PHOSPHOKINASE 37 U/L (26-192); CREATININE FOR GFR 0.89 MG/DL (0.55-1.30); GLOMERULAR FILTRATION RATE > 60.0 (>39); GLUCOSE, FASTING 92 MG/DL (70-100); MAGNESIUM LEVEL 2.2 MG/DL (1.8-2.4); POTASSIUM SERUM 4.1 MEQ/L (3.5-5.1); SODIUM LEVEL 140 MEQ/L (136-145); TROPONIN I < 0.02 NG/ML (< 0.10)
[2020-10-30] MEDS ORDERED: OMEGA-3 1000MG CAPSULE PO SCH (09:00)
[2020-10-30] MEDS ORDERED: MAGNESIUM OXIDE 400MG TAB (MAG-OX) PO SCH (09:00)
[2020-10-30] MEDS ORDERED: OMEPRAZOLE 20 MG CAP PO SCH (09:00)
[2020-10-30] MEDS ORDERED: CYANOCOBALAMIN 500 MCG TAB PO SCH (09:00)
[2020-10-30] MEDS ORDERED: DOCUSATE SODIUM 100MG CAPSULE PO SCH (09:00)
[2020-10-30] MEDS ORDERED: ASPIRIN 81MG ENTERIC TABLET PO SCH (09:00)
[2020-10-30] MEDS ORDERED: LIDOCAINE 1% MDV 20ML VIAL As Ordered ONE (09:18)
[2020-10-30] MEDS ORDERED: ISOVUE-300 61% 50ML VIAL As Ordered ONE (09:18)
[2020-10-30] MEDS ORDERED: diphenhydrAMINE 50MG/ML VIAL (J1200) As Ordered ONE (09:20)
[2020-10-30] MEDS ORDERED: MIDAZOLAM INJ 2MG/2ML VIAL (J2250 PER 1MG) As Ordered ONE (09:20)
[2020-10-30] MEDS ORDERED: fentaNYL 100 MCG/2 ML INJECTION (J3010) As Ordered ONE (09:20)
--- NOTE | 2020-10-30 09:41 | IRMSE ---
[facility] IR Moderate Sedation Eval. Date and Time Date: Oct 30, 2020 Time: 09:41 ASA Classification ASA Classification: III-Severe systemic dis. Mallampati Score: II NPO: Yes Obstructive Sleep Apnea: Yes Interval Plan: moderate sedation JOSSY AVILA MD Oct 30, 2020 09:41
--- NOTE | 2020-10-30 10:04 | IRINPTCON ---
[facility] IR Inpatient Consultation IR Inpatient Consultation DATE: Oct 30, 2020 REASON FOR CONSULTATION/CHIEF COMPLAINT: PE. DVT. IVC filter. HISTORY OF PRESENT ILLNESS: 80-year-old female was previously in good health, suddenly had chest pain and shortness of breath while at home. She presented to the ER where she had a CT PE protocol which showed bilateral lobar pulmonary emboli associated with tachycardia and hypoxia. She was not hypotensive. She had a bilateral lower extremity venous ultrasound which demonstrated extensive occlusive right lower extremity deep vein thrombosis including the femoral vein. Patient states that she does get short of breath now when she tries to do things around the house. However, at rest she feels her breathing is okay. She denies chest pain. She denies right lower extremity pain or swelling. She denies prior DVT or PE. She denies any recent major surgery, prior stroke, prior bleeding. She denies chest pain, orthopnea or paroxysmal nocturnal dyspnea. ALLERGIES: Please see below. HOME MEDICATIONS: Please see below. PAST MEDICAL HISTORY: Urethral stricture Overactive bladder Hypercholesterolemia Osteoarthritis Dilated cardiomyopathy with left bundle-branch block Sleep apnea GERD Restless leg syndrome Hypothyroid Back surgery Right Willoughby's cyst PAST SURGICAL HISTORY: Hysterectomy Mastectomy Laminectomy Knee replacements Shoulder surgery Cataract surgery FAMILY HISTORY: Nonsmoker. Denies alcohol or drugs. SOCIAL HISTORY: No family history of DVT or PE. REVIEW OF SYSTEMS: Otherwise negative. PHYSICAL EXAMINATION: VITAL SIGNS: Please see below. GENERAL APPEARANCE: Appears well. Comfortable at rest. Speaking in sentences. HEENT: No scleral icterus. RESPIRATORY: Normal breathing at rest. CARDIOVASCULAR: Normal rate. ABDOMEN: Soft nontender. EXTREMITIES: Bilateral lower extremity edema. No asymmetric swelling of right versus left lower extremity. No phlegmasia. Bilateral lower extremities warm to touch. Skin color normal. NEUROLOGICAL: Alert and oriented. PSYCHIATRIC: Appropriate to circumstance. LABORATORY DATA: 10/30/2020 hemoglobin 12.7 hematocrit 38.8 WBC 6.8 platelets 278 sodium 140 potassium 4.1 BUN 23 creatinine 0.89 GFR greater than 60 troponin less than 0.02. 3 troponins trended less than 0.02 Imaging: I personally reviewed the patient's bilateral lower extremity venous ultrasound performed 10/26/2020. Extensive thrombus in the right femoral vein and popliteal vein extending up to the common femoral vein. No left lower extremity DVT. There is a solid mass in the right popliteal fossa. I personally reviewed the CT PE protocol performed 10/26/2020. There is pulmonary embolus in the left upper and lower lobar pulmonary arteries. The upper lobar pulmonary embolus extends partially into the main pulmonary artery. There is pulmonary embolus in the right lobar pulmonary arteries extending into the segmental branches. Echocardiogram was performed. Results are pending. ASSESSMENT/PLAN: 80-year-old female with large bilateral pulmonary emboli and extensive right lower extremity DVT. Currently patient is not tachycardic or hypotensive. Her cardiac troponins have been negative. Her echo results are pending. There is no clear indication of right heart strain. Therefore, catheter directed thrombolysis at this time doesn't appear to be indicated. However, given the clot burden in the lungs and associated symptomatology, any further pulmonary embolus burden may be detrimental. Therefore, she has indication for an IVC filter placement. Patient would continue on anticoagulation. We discussed the risks and benefits of filter placement and patient agreed to proceed. We will place an IVC filter. Patient will be followed-up in IR in 6 months to discuss filter retrieval. Patient will require follow-up with orthopedics regarding her right popliteal fossa mass. This may or may not be related to prior Willoughby's cyst. I spent 30 minutes reviewing patient's records, imaging and in consultation with the patient. Thank you for this referral. Cc Dr. Quintero Cc Dr. Szymanski Allergies Coded Allergies: Penicillins (Verified Allergy, Unknown, 04/26/20) Sulfa (Sulfonamide Antibiotics) (Verified Allergy, Unknown, 04/26/20) quinine (Verified Allergy, Unknown, 04/26/20) Home Medications Scheduled Acetaminophen (Tylenol Arthritis), 650 MG PO BID, (Reported) Apixaban (Eliquis), 10 MG PO BID, (Reported) Apixaban (Eliquis), 5 MG PO BID, (Reported) Aspirin (Aspirin EC), 81 MG PO DAILY, (Reported) Clonazepam (Clonazepam), 3 MG PO QHS, (Reported) Cyanocobalamin (Vitamin B-12) (Vitamin B-12), 1,000 MCG PO DAILY, (Reported) Levothyroxine Sodium (Levothyroxine Sodium), 75 MCG PO DAILY, (Reported) Magnesium Oxide (Magnesium Oxide), 400 MG PO DAILY, (Reported) Naproxen Sodium (Aleve), 220 MG PO BID, (Reported) Tell-3 Fatty Acids/Fish Oil (Tell 3 1,000 mg Softgel), 1,000 MG PO DAILY, (Reported) Omeprazole (Omeprazole), 40 MG PO DAILY, (Reported) Discontinued Medications Apixaban (Eliquis), 5 MG PO ASDIRECTED Discontinued Reason: Re-entering as new Clindamycin HCl (Clindamycin HCl), 300 MG PO Q6H, (Reported) Discontinued Reason: Pt states not taking Moxifloxacin HCl (Moxifloxacin HCl), 1 TAB PO DAILY Discontinued Reason: Pt states not taking Oxycodone HCl/Acetaminophen (Oxycodone-Acetaminophen 5-325), 1 TAB PO Q6HP PRN for PAIN, (Reported) Discontinued Reason: Pt states not taking VS, I&O, 24H, Fishbone Vital Signs/I&O Vital Signs Date Time Temp Pulse Resp B/P (MAP) Pulse Ox O2 Delivery O2 Flow Rate FiO2 10/30/20 06:00 83 131/60 (83) 95 Room Air 10/30/20 04:00 96.9 20 I&O- Last 24 Hours up to 6 AM 10/30/20 05:59 Intake Total 116.25 ml Output Total 370 ml Balance -253.75 ml Laboratory Data 24H LABS Laboratory Tests 2 10/29/20 16:47: Immature Granulocyte % (Auto) 0.3, Neutrophils (%) (Auto) 59.9, Lymphocytes (%) (Auto) 27.1, Monocytes (%) (Auto) 7.1, Eosinophils (%) (Auto) 5.1H, Basophils (%) (Auto) 0.5, Neutrophils # (Auto) 4.7, Lymphocytes # (Auto) 2.1, Monocytes # (Auto) 0.6, Eosinophils # (Auto) 0.4, Basophils # (Auto) 0.0, Nucleated Red Blood Cells % (auto) 0.0, Prothrombin Time 16.3H, Prothromb Time International Ratio 1.28, Activated Partial Thromboplast Time 35.0, Anion Gap 5L, Glomerular Filtration Rate > 60.0, Calcium Level 9.2, Magnesium Level 2.3, Total Bilirubin 0.3, Aspartate Amino Transf (AST/SGOT) 21, Alanine Aminotransferase (ALT/SGPT) 23, Alkaline Phosphatase 93, Total Protein 7.7, Albumin 3.7, Albumin/Globulin Ratio 0.9L 10/29/20 19:26: Activated Partial Thromboplast Time 32.8, Total Creatine Kinase 52, Creatine Kinase MB 1.2, Creatine Kinase MB Relative Index 2.31, Troponin I < 0.02 10/29/20 20:56: Coronavirus (COVID-19)(PCR) NEGATIVE, Influenza Type A (RT-PCR) NEGATIVE, Influenza Type B (RT-PCR) NEGATIVE, Respiratory Syncytial Virus (PCR) NEGATIVE 10/30/20 01:43: Activated Partial Thromboplast Time 148.6*H, Total Creatine Kinase 40, Creatine Kinase MB 1.2, Creatine Kinase MB Relative Index 3.00, Troponin I < 0.02 10/30/20 06:51: Immature Granulocyte % (Auto) 0.3, Neutrophils (%) (Auto) 58.0, Lymphocytes (%) (Auto) 25.9, Monocytes (%) (Auto) 7.7, Eosinophils (%) (Auto) 7.2H, Basophils (%) (Auto) 0.9, Neutrophils # (Auto) 4.0, Lymphocytes # (Auto) 1.8, Monocytes # (Auto) 0.5, Eosinophils # (Auto) 0.5, Basophils # (Auto) 0.1, Nucleated Red Blood Cells % (auto) 0.0, Anion Gap 3L, Glomerular Filtration Rate > 60.0, Calcium Level 8.7L, Magnesium Level 2.2, Total Creatine Kinase 37, Creatine Kinase MB 1.0, Creatine Kinase MB Relative Index 2.70, Troponin I < 0.02 10/30/20 09:04: CBC/BMP Laboratory Tests 10/29/20 16:47 10/30/20 06:51 JOSSY AVILA MD Oct 30, 2020 10:04
[2020-10-30] MEDS ORDERED: ENOX40IN3 SC ×2 (11:38→14:47)
[2020-10-30] MEDS: ACETAMINOPHEN 650MG ER TAB (TYLENOL ARTHRITIS) PO SCH (11:58)
[2020-10-30] MEDS ORDERED: ENOXAPARIN 100MG/1ML SYRINGE (J1650 PER 10MG) SC SCH (12:00)
[2020-10-30] MEDS ORDERED: VANCOMYCIN HCL 1,000 MG, VIAL MATE ADAPTER 1 EACH in NS 250 ML IV ONE (15:40)
[2020-10-30] MEDS ORDERED: NS 1,000 ML IV SCH (15:40)
--- NOTE | 2020-10-30 17:56 | ECGEPIP ---
[facility] - ED Test Date: 2020-10-29 Pat Name: GRAYSON CUNNINGHAM Department: Room: - Gender: Female Liaison Planner: EDWIN : [id number] Requested By: RONY Mondragon Order Number: [id number] Reading MD: Hortensia Gutierrez Measurements Intervals [place] Rate: 86 P: 36 CO: 146 QRS: -26 QRSD: 136 T: 95 QT: 412 QTc: 493 Interpretive Statements Normal sinus rhythm Left bundle branch block lad prolonged qtc decreased rate 10/26/20 Electronically Signed on 10-30-2020 17:56:26 EDT by Hortensia Gutierrez
--- NOTE | 2020-10-30 19:06 | ECHO ---
ECHOCARDIOGRAM DATE OF PROCEDURE: 10/29/2020 Age: 80 Gender: Female Height: 160 cm Weight: 97 kg REFERRING PHYSICIAN: Sima Szymanski M.D. PATIENT LOCATION: ED, Room 12. REASON FOR STUDY: Shortness of breath. 2D MEASUREMENTS: IVS 1.3 cm LV 4.2 cm LVPW 1.3 cm LA 3.4 cm Aorta 2.9 cm IVC 1.6 cm DOPPLER MEASUREMENT Peak velocity across the aortic valve 1.6 m/s Peak velocity across the LVOT 0.78 m/s Mitral E 0.55 Mitral A 0.89 with a ratio of 0.6 Maximum tricuspid valve velocity 2.3 m/s 2D COMMENTS: 1. Normal left ventricular size with mildly increased left ventricular wall thickness, but a depressed global left ventricular systolic function. The anterior septum appeared to be both dyskinetic and hypokinetic. The estimated left ventricular systolic ejection fraction is 35% to 40%. 2. Subjectively, the left atrium appeared to be mildly enlarged. Normal right atrium and right ventricle. 3. The atrial septum appeared to be normal without evidence of defect or shunt. 4. Normal aortic root. 5. No pericardial effusion seen. 6. Mildly calcified aortic valve with normal leaflet excursion. Mildly calcified mitral annulus with normal anterior valve mitral valve leaflet motion. Normal tricuspid valve. The pulmonic valve and proximal pulmonary artery branches were not well visualized. 7. The inferior vena cava was normal in size, central venous pressure is probably normal. DOPPLER: Detects trace to mild mitral regurgitation and trace to mild tricuspid regurgitation. The calculated pulmonary artery systolic pressure varies between 30 to 40 mmHg. Abnormal relaxation pattern was noted across the mitral valve leaflets, as well as the mitral valve annulus consistent with features of grade 1 left ventricular diastolic dysfunction. IMPRESSION: 1. Moderate global left ventricular systolic dysfunction with regional wall motion abnormalities with preserved left ventricular wall thickness. 2. Aortic valve sclerosis without stenosis or aortic regurgitation. 3. Mitral annulus calcification with trace to mild mitral regurgitation. Subjectively, the left atrium appeared to be mildly enlarged. 4. Trace to mild tricuspid regurgitation with probably mild pulmonary hypertension. 5. There are some features of grade 1 left ventricular diastolic dysfunction.
--- NOTE | 2020-10-30 19:10 | DS.PDOC ---
Discharge Summary General Date of Admission Oct 29, 2020 at 18:29 Date of Discharge October 30, 2020 Attending Physician: SIMA BLISS MD Discharge Summary PROCEDURES PERFORMED DURING STAY: IVC filter placement ADMITTING DIAGNOSES: Multiple PE and clot in the leg and for IVC placement. Urethral stricture Overactive bladder HYPERCHOLESTEROLEMIA OSTEOARTHRITIS DILATED CARDIOMYOPATHY, LBBB SLEEP APNEA GASTROESOPHAGEAL REFLUX Restless leg syndrome HYPOTHYROIDISM ALLERGIC RHINITIS H/O Back surgery CRAMPS, EXTREMITY Lobulated cystic and solid mass in the right popliteal fossa. Bakers cyst as per ortho. DISCHARGE DIAGNOSES: Multiple PE and clot in the leg and IVC placed Urethral stricture Overactive bladder HYPERCHOLESTEROLEMIA OSTEOARTHRITIS DILATED CARDIOMYOPATHY, LBBB SLEEP APNEA GASTROESOPHAGEAL REFLUX Restless leg syndrome HYPOTHYROIDISM ALLERGIC RHINITIS H/O Back surgery CRAMPS, EXTREMITY Lobulated cystic and solid mass in the right popliteal fossa. Bakers cyst as per ortho. COMPLICATIONS/CHIEF COMPLAINT: Multiple Pulmonary Emboli. HISTORY OF PRESENT ILLNESS:.80-year-old female patient who was sent to ED from PCP clinic due to concern for thrombus load on evaluation in the clinic. Patient was admitted 3 days ago and in hospital for multiple PE and bilateral lungs and clot in the right leg and was discharged yesterday on Eliquis. On examination in the PCP clinic today PCP felt that her thrombus burden load was high and which can be detrimental to the patient and recommended to go to the ED and be admitted in the hospital to get IVC filter placed in by Dr. Le. HOSPITAL COURSE: Patient was admitted in the ICU and was started on heparin maintenance drip. She did tolerate that well today morning she was taken to the IR suite and had the IVC filter placed in by Dr. Le. Patient tolerated the procedure well. She remained hemodynamically stable. Lab work did not reveal any significant troponin leak to suggest right heart stain. Patient was ultimately discharge home with Lovenox therapeutic dosing. DISCHARGE MEDICATIONS: Please see below. ALLERGIES: Please see below. PHYSICAL EXAMINATION ON DISCHARGE: VITAL SIGNS: Please see below. General: Patient is awake, alert, oriented times three, laying in bed , no apparent distress. Cardiovascular: S1, S2, normal rhythm, no murmur. Respiratory: Chest is clear to auscultation bilaterally, No rhonchi, wheezes or rubs. Abdomen: Soft, bowel sounds positive, no bruits. Nontender on palpation. Liver edge, spleen, kidney not felt, no masses. Extremities: No clubbing or cyanosis. No pitting edema. has tenderness, sensitivity of the legs. Could not appreciate pulses in the bilateral feet on palpation. Central nervous system (CALL CENTER SUPPORT REPRESENTATIVE): Awake, alert and fully oriented. Skin: No rashes, lesions, ulcerations, subcutaneous nodules or induration. LABORATORY DATA: Please see below. IMAGING: None PROGNOSIS: Good ACTIVITY: As tolerated. DIET: Regular diet DISCHARGE PLAN: Follow-up with PCP in 3 to 5 days. DISPOSITION: 01 Home, Self-Care. DISCHARGE INSTRUCTIONS: 1. Patient was discharged home on enoxaparin 40 mg subcutaneous twice daily. 2. Patient was instructed on how to take the subcutaneous injection ITEMS TO FOLLOWUP ON ON OUTPATIENT: 1. Follow-up with PCP in 3 to 5 days DISCHARGE CONDITION: Stable. TIME SPENT ON DISCHARGE: 45 minutes. Vital Signs/I&Os Vital Signs Date Time Temp Pulse Resp B/P (MAP) Pulse Ox O2 Delivery O2 Flow Rate FiO2 10/30/20 14:30 98.5 87 146/61 (89) 96 Room Air 10/30/20 11:30 20 10/30/20 10:50 2.0 I&O- Last 24 Hours up to 6 AM 10/30/20 06:00 Intake Total 149.25 ml Output Total 535 ml Balance -385.75 ml Laboratory Data Labs 24H Laboratory Tests 2 10/29/20 19:26: Activated Partial Thromboplast Time 32.8, Total Creatine Kinase 52, Creatine Kinase MB 1.2, Creatine Kinase MB Relative Index 2.31, Troponin I < 0.02 10/29/20 20:56: Coronavirus (COVID-19)(PCR) NEGATIVE, Influenza Type A (RT-PCR) NEGATIVE, Influenza Type B (RT-PCR) NEGATIVE, Respiratory Syncytial Virus (PCR) NEGATIVE 10/30/20 01:43: Activated Partial Thromboplast Time 148.6*H, Total Creatine Kinase 40, Creatine Kinase MB 1.2, Creatine Kinase MB Relative Index 3.00, Troponin I < 0.02 10/30/20 06:51: Total Creatine Kinase 37, Creatine Kinase MB 1.0, Creatine Kinase MB Relative Index 2.70, Troponin I < 0.02, Immature Granulocyte % (Auto) 0.3, Neutrophils (%) (Auto) 58.0, Lymphocytes (%) (Auto) 25.9, Monocytes (%) (Auto) 7.7, Eosinophils (%) (Auto) 7.2H, Basophils (%) (Auto) 0.9, Neutrophils # (Auto) 4.0, Lymphocytes # (Auto) 1.8, Monocytes # (Auto) 0.5, Eosinophils # (Auto) 0.5, Basophils # (Auto) 0.1, Nucleated Red Blood Cells % (auto) 0.0, Anion Gap 3L, Glomerular Filtration Rate > 60.0, Calcium Level 8.7L, Magnesium Level 2.2 10/30/20 09:04: Activated Partial Thromboplast Time 109.5H CBC/BMP Laboratory Tests 10/30/20 06:51 Discharge Medications Scheduled Acetaminophen (Tylenol Arthritis) 650 Mg Tab, 650 MG PO BID, (Reported) Aspirin (Aspirin EC) 81 Mg Tab, 81 MG PO DAILY, (Reported) Clonazepam (Clonazepam) 1 Mg Tab, 3 MG PO QHS, (Reported) Cyanocobalamin (Vitamin B-12) (Vitamin B-12) 1,000 Mcg Tab, 1,000 MCG PO DAILY, (Reported) Enoxaparin Sodium (Enoxaparin Sodium) 40 Mg/0.4 Ml Syringe, 40 MG SC BID Enoxaparin 100 mg SQ BID x 30 days - please adjust syringe dose as needed - Prior authorization completed Levothyroxine Sodium (Levothyroxine Sodium) 75 Mcg Tab, 75 MCG PO DAILY, (Reported) Magnesium Oxide (Magnesium Oxide) 400 Mg Tab, 400 MG PO DAILY, (Reported) Naproxen Sodium (Aleve) 220 Mg Capsule, 220 MG PO BID, (Reported) Carmel-3 Fatty Acids/Fish Oil (Carmel 3 1,000 mg Softgel) 1 Each Capsule, 1,000 MG PO DAILY, (Reported) Omeprazole (Omeprazole) 40 Mg Capsule.dr, 40 MG PO DAILY, (Reported) Allergies Coded Allergies: Penicillins (Verified Allergy, Unknown, 04/26/20) Sulfa (Sulfonamide Antibiotics) (Verified Allergy, Unknown, 04/26/20) quinine (Verified Allergy, Unknown, 04/26/20) GME ATTESTATION GME ATTESTATION My faculty preceptor for this patient encounter was physically present during the encounter and was fully available. All aspects of the patient interview, examination, medical decision making process, and medical care plan development were reviewed and approved by the faculty preceptor. The faculty preceptor is aware and concurs with the plan as stated in the body of this note and will attest to such by his/her cosignature. ATTENDING NOTE I, Sima Bliss, have independently examined this patient and performed my own physical exam, as well as reviewed the documentation and edited where necessary. I have discussed in detail with the resident / student the findings and plan of treatment as documented by the resident / student and edited their note. I agree with their findings and treatment plan and have edited their documentation. I will continue to follow the patient during this hospital stay. Time spent on discharge 45 minutes Rebecca Munoz MD Oct 30, 2020 19:10 SIMA BLISS MD Oct 30, 2020 21:12
--- NOTE | 2020-11-04 09:23 | IRPON ---
IR Postoperative Note Date Of Procedure: Oct 30, 2020 Time Of Procedure: 16:00 IR Postoperative Note IR IVC Filter Placement. Inferior vena cavogram. Ultrasound of the right groin. Clinical Information:Multiple large pulmonary emboli. Large right lower extremity deep vein thrombosis, extending to the femoral vein. Patient is referred for IVC filter placement. Given the pulmonary embolic burden and patient's baseline symptomatology, any further embolic burden may be detrimental. Therefore an IVC filter is indicated. Physician: Dr. Le. Procedure: The patient was advised of the benefits, risks, and alternatives of the procedure and informed consent was obtained. A time out was performed with verification of the patient's name, MRN, site of procedure, and type of procedure to be performed. The patient was positioned in the supine position on the angiographic table. The site was prepped and draped in the usual sterile fashion. Moderate sedation was not required. I spent 30 minutes [id number] time with the patient. Preliminary ultrasound of the right groin was performed, demonstrating the right common femoral vein to be patent, and easily compressible. The right common femoral vein was accessed using a microintroducer system, under ultrasound guidance. An 018 wire was advanced under fluoroscopy guidance. The needle was exchanged for a micro-sheath. A 0.035 Amplatz wire was advanced under fluoroscopy guidance and placed into the central inferior vena cava. The tract was dilated under fluoroscopy guidance and a filter sheath was advanced over the wire, under fluoroscopic guidance into the right iliac vein. An inferior venacavogram was then performed, demonstrating patent right iliac vein, a normal caliber inferior vena cava without filling defects and the renal vein inflows at the L1 level. No caval anomalies were identified. The filter sheath was then advanced over the wire, under fluoroscopy guidance, to the central inferior vena cava. A retrievable Cook celect inferior vena cava filter was then advanced through the sheath and positioned within the infra- renal inferior vena cava. The filter was then deployed in the usual fashion. Positioning was confirmed fluoroscopically. The sheath was then removed and hemostasis obtained with manual compression. The patient tolerated the procedure well and was returned to the PRU in stable condition. EBL: < 5 mL. Complications: None. Conclusions: 1. Normal cavogram. 2. Successful deployment of a retrievable Cook Celect inferior vena cava filter in the infra-renal inferior vena cava. 3. Patient to follow-up in IR in 6 months, to discuss filter retrieval. Thank you for this referral. Cc JOSSY Irizarry MD Nov 04, 2020 09:23
== END 2020-10-30 16:00 | disposition home or self-care (01) | DRG 299 ==
LOC: EDBD 13:55 → M ED 13:55 → M ED INP 18:29 → ENRESERV 19:10 → M ICU 22:20
PROVIDERS: ADMIT Internal Medicine; ATTEND Internal Medicine
PROC: 06H03DZ Insertion of Intraluminal Device into Inferior Vena Cava, Percutaneous Approach (ICD-10-PCS; principal; 2020-10-30 10:30)
DX: I82.431 Acute embolism and thrombosis of right popliteal vein (principal); I26.99 Other pulmonary embolism without acute cor pulmonale; I42.0 Dilated cardiomyopathy; N32.81 Overactive bladder; E78.00 Pure hypercholesterolemia, unspecified; M19.90 Unspecified osteoarthritis, unspecified site; G47.30 Sleep apnea, unspecified; K21.9 Gastro-esophageal reflux disease without esophagitis; G25.81 Restless legs syndrome; J30.9 Allergic rhinitis, unspecified; M71.21 Synovial cyst of popliteal space [Baker], right knee; Z90.13 Acquired absence of bilateral breasts and nipples; Z96.653 Presence of artificial knee joint, bilateral; Z98.41 Cataract extraction status, right eye; Z98.42 Cataract extraction status, left eye; Z79.82 Long term (current) use of aspirin; Z79.899 Other long term (current) drug therapy; Z88.0 Allergy status to penicillin; Z88.2 Allergy status to sulfonamides; Z20.822 Contact with and (suspected) exposure to COVID-19

== ENCOUNTER → 2020-11-18 | Outpatient (POV) | payer MEDICARE, BC, MEDICAID ==
[~2020-11-18] VITALS: Ht 160 cm; Wt 95.0 kg
[~2020-11-18] MED LIST changes: +ENOX40IN3 SC
[2020-11-18 09:05] VITALS: BP 150/86
--- NOTE | 2020-11-19 11:39 | IRPN ---
[facility] IR Progress Note IR Progress Note DATE: Nov 18, 2020 FOLLOW-UP: Patient is status post IVC filter placement for right lower extremity DVT and large PE. Patient is on Lovenox. Patient reports her breathing is slowly improving. However, she does have extreme fatigue. The groin access site for filter placement has healed up without any issues. ON EXAMINATION: Patient comfortable at rest. Speaking in sentences. No difficulty in breathing. IMPRESSION: Doing well status post IVC filter placement for large right lower extremity DVT and large pulmonary embolus. Patient will continue on long-term anticoagulation managed by Dr. Quintero. I will follow the patient up in 6 months to discuss filter retrieval if appropriate. Thank you for this referral. Cc Dr. Quintero Allergies Coded Allergies: Penicillins (Verified Allergy, Unknown, 04/26/20) Sulfa (Sulfonamide Antibiotics) (Verified Allergy, Unknown, 04/26/20) quinine (Verified Allergy, Unknown, 04/26/20) VS,Fishbone, I+O VS, Fishbone, I+O Vital Signs Date Time Temp Pulse Resp B/P (MAP) Pulse Ox O2 Delivery O2 Flow Rate FiO2 11/18/20 09:05 98.0 91 20 150/86 (107) 96 Room Air JOSSY AVILA MD Nov 19, 2020 11:39
== END ==
LOC: M IRPOV 08:54
PROVIDERS: ATTEND Radiology Diagnostic Radiology
DX: Z48.812 Encounter for surgical aftercare following surgery on the circulatory system (principal); Z86.718 Personal history of other venous thrombosis and embolism; Z88.0 Allergy status to penicillin; Z88.2 Allergy status to sulfonamides; Z88.8 Allergy status to other drugs, medicaments and biological substances

== ENCOUNTER → 2021-01-08 | Outpatient (REF) | payer MEDICARE, BC, MEDICAID ==
[2021-01-08 09:45] LABS: BASO % 0.7 % (0.0-1.0); EOS # 0.4 10^3/uL (0.0-0.5); EOS % 7.3 % (0.0-3.0); HEMATOCRIT 38.1 % (36.0-47.0); HEMOGLOBIN 12.2 g/dl (12.0-15.5); LYMPH # 1.8 10^3/uL (1.5-5.0); LYMPH % 33.3 % (24.0-44.0); MEAN CORPUSCULAR VOLUME 90.5 fl (80.0-96.0); MONO # 0.7 10^3/uL (0.0-0.8); NEUTROPHILS # 2.6 10^3/uL (1.5-8.5); NEUTROPHILS % 46.5 % (36.0-66.0); PLATELET COUNT, AUTOMATED 298 10^3/uL (150-450); RED BLOOD COUNT 4.21 10^6/uL (4.00-5.40); WHITE BLOOD COUNT 5.5 10^3/uL (4.0-10.0)
[2021-01-08 10:17] LABS: ALBUMIN 3.3 GM/DL (3.2-5.2); ALT/SGPT 25 U/L (12-78); BILIRUBIN,TOTAL 0.4 MG/DL (0.2-1.0); BLOOD UREA NITROGEN 18 MG/DL (7-18); CALCIUM LEVEL 9.3 MG/DL (8.8-10.2); CARBON DIOXIDE LEVEL 28 MEQ/L (21-32); CHLORIDE LEVEL 108 MEQ/L (98-107); CHOLESTEROL LEVEL 178 MG/DL (<200); CHOLESTEROL RISK RATIO 3.787 (<5); GLOMERULAR FILTRATION RATE > 60.0 (>39); GLUCOSE, FASTING 81 MG/DL (70-100); HDL CHOLESTEROL 47 MG/DL (>40); LDL CHOLESTEROL 102 MG/DL (<100); MAGNESIUM LEVEL 2.3 MG/DL (1.8-2.4); NON-HDL-C 131 MG/DL; POTASSIUM SERUM 3.9 MEQ/L (3.5-5.1); SODIUM LEVEL 141 MEQ/L (136-145); TRIGLYCERIDES LEVEL 146 MG/DL (<150)
== END ==
LOC: M LAB REF 09:14
PROVIDERS: ATTEND Internal Medicine
DX: E78.00 Pure hypercholesterolemia, unspecified (principal); G47.30 Sleep apnea, unspecified; E03.9 Hypothyroidism, unspecified; K21.9 Gastro-esophageal reflux disease without esophagitis

== ENCOUNTER → 2021-05-04 | Outpatient (REF) | payer MEDICARE, BC, MEDICAID ==
[~2021-05-04] MED LIST changes: +CLIN-250 PO; -CLIN300C6 PO
[2021-05-04 11:07] LABS: BASO # 0.1 10^3/uL (0.0-0.2); EOS # 0.4 10^3/uL (0.0-0.5); EOS % 6.1 % (0.0-3.0); HEMATOCRIT 40.4 % (36.0-47.0); LYMPH # 2.1 10^3/uL (1.5-5.0); LYMPH % 29.6 % (24.0-44.0); MEAN CORPUSCULAR HEMOGLOBIN 28.6 pg (27.0-33.0); MEAN CORPUSCULAR HGB CONC 32.2 g/dl (32.0-36.5); MONO # 0.7 10^3/uL (0.0-0.8); MONO % 9.5 % (2.0-8.0); NEUTROPHILS # 3.8 10^3/uL (1.5-8.5); NEUTROPHILS % 53.5 % (36.0-66.0); PLATELET COUNT, AUTOMATED 342 10^3/uL (150-450); RED BLOOD COUNT 4.54 10^6/uL (4.00-5.40); WHITE BLOOD COUNT 7.1 10^3/uL (4.0-10.0)
[2021-05-04 11:36] LABS: ALBUMIN 3.8 GM/DL (3.2-5.2); ALT/SGPT 23 U/L (12-78); BILIRUBIN,TOTAL 0.2 MG/DL (0.2-1.0); BLOOD UREA NITROGEN 20 MG/DL (7-18); CALCIUM LEVEL 9.3 MG/DL (8.8-10.2); CARBON DIOXIDE LEVEL 26 MEQ/L (21-32); CHLORIDE LEVEL 107 MEQ/L (98-107); CREATININE FOR GFR 0.86 MG/DL (0.55-1.30); GLOMERULAR FILTRATION RATE > 60.0 (>32); GLUCOSE, FASTING 93 MG/DL (70-100); POTASSIUM SERUM 4.4 MEQ/L (3.5-5.1); SODIUM LEVEL 139 MEQ/L (136-145); TOTAL PROTEIN 7.6 GM/DL (6.4-8.2)
== END ==
LOC: M LAB REF 10:18
PROVIDERS: ATTEND Internal Medicine
DX: E78.00 Pure hypercholesterolemia, unspecified (principal); G47.30 Sleep apnea, unspecified

== ENCOUNTER → 2021-05-20 | Outpatient (CLI) | payer MEDICARE, MEDICAID ==
[~2021-05-20] MED LIST changes: +CALCTAB41 PO; +ISOVUE-300 61% 50ML VIAL As Ordered ONE; +LIDOCAINE 1% MDV 20ML VIAL As Ordered ONE; +MIDAZOLAM INJ 2MG/2ML VIAL (J2250 PER 1MG) As Ordered ONE; +NS 1,000 ML IV SCH; -OMEP-221 PO; +OMEP40CA5 PO; +diphenhydrAMINE 50MG/ML VIAL (J1200) As Ordered ONE; +fentaNYL 100 MCG/2 ML INJECTION (J3010) As Ordered ONE
[2021-05-20 11:30] VITALS: BP 138/70
== END ==
LOC: M IRPRO 07:23
PROVIDERS: ATTEND Radiology Diagnostic Radiology
DX: Z45.89 Encounter for adjustment and management of other implanted devices (principal); Z86.718 Personal history of other venous thrombosis and embolism; Z86.711 Personal history of pulmonary embolism; Z79.01 Long term (current) use of anticoagulants; Z95.828 Presence of other vascular implants and grafts; Z79.890 Hormone replacement therapy; Z88.0 Allergy status to penicillin; Z88.1 Allergy status to other antibiotic agents; Z88.2 Allergy status to sulfonamides
CPT/HCPCS: 37193; 99152; 99153; C1769; C1773; C1887; C1894; J1200; J2250; J3010; Q9967

== ENCOUNTER → 2021-06-09 | Outpatient (POV) | payer MEDICARE, MEDICAID ==
[~2021-06-09] VITALS: Ht 160 cm; Wt 94.1 kg
[~2021-06-09] MED LIST changes: -ISOVUE-300 61% 50ML VIAL As Ordered ONE; -LIDOCAINE 1% MDV 20ML VIAL As Ordered ONE; -MIDAZOLAM INJ 2MG/2ML VIAL (J2250 PER 1MG) As Ordered ONE; -NS 1,000 ML IV SCH; -diphenhydrAMINE 50MG/ML VIAL (J1200) As Ordered ONE; -fentaNYL 100 MCG/2 ML INJECTION (J3010) As Ordered ONE
[2021-06-09 14:10] VITALS: BP 159/79
== END ==
LOC: M IRPOV 13:45
PROVIDERS: ATTEND Radiology Diagnostic Radiology
DX: Z45.2 Encounter for adjustment and management of vascular access device (principal)

== ENCOUNTER → 2021-06-15 | Outpatient (CLI) | payer MEDICARE, MEDICAID ==
[~2021-06-15] MED LIST changes: +ISOVUE-300 61% 50ML VIAL As Ordered ONE; +LIDOCAINE 1% MDV 20ML VIAL As Ordered ONE; +MIDAZOLAM INJ 2MG/2ML VIAL (J2250 PER 1MG) As Ordered ONE; +NS 1,000 ML IV SCH; +diphenhydrAMINE 50MG/ML VIAL (J1200) As Ordered ONE; +fentaNYL 100 MCG/2 ML INJECTION As Ordered ONE
[2021-06-15 15:40] VITALS: BP 125/60
== END ==
LOC: M IRPRO 11:10
PROVIDERS: ATTEND Radiology Diagnostic Radiology
DX: Z45.89 Encounter for adjustment and management of other implanted devices (principal); Z86.718 Personal history of other venous thrombosis and embolism
CPT/HCPCS: 37193; 99152; 99153; C1769; C1773; C1887; C1894; J1200; J1644; J2250; J3010; Q9967

== ENCOUNTER → 2021-06-30 | Outpatient (POV) | payer MEDICARE, MEDICAID ==
[~2021-06-30] VITALS: Ht 160 cm; Wt 93.1 kg
[~2021-06-30] MED LIST changes: -ISOVUE-300 61% 50ML VIAL As Ordered ONE; -LIDOCAINE 1% MDV 20ML VIAL As Ordered ONE; -MIDAZOLAM INJ 2MG/2ML VIAL (J2250 PER 1MG) As Ordered ONE; -NS 1,000 ML IV SCH; -diphenhydrAMINE 50MG/ML VIAL (J1200) As Ordered ONE; -fentaNYL 100 MCG/2 ML INJECTION As Ordered ONE
[2021-06-30 09:45] VITALS: BP 154/81
== END ==
LOC: M IRPOV 09:19
PROVIDERS: ATTEND Radiology Diagnostic Radiology
DX: Z01.89 Encounter for other specified special examinations (principal); Z86.711 Personal history of pulmonary embolism; Z86.718 Personal history of other venous thrombosis and embolism; Z88.0 Allergy status to penicillin; Z88.2 Allergy status to sulfonamides; Z88.8 Allergy status to other drugs, medicaments and biological substances; Z95.828 Presence of other vascular implants and grafts; Z79.01 Long term (current) use of anticoagulants

== ENCOUNTER → 2021-08-06 | Outpatient (CLI) | payer MEDICARE, MEDICAID | LOC: M RAD 14:12 | PROVIDERS: ATTEND Physician Assistant | DX: M25.551 Pain in right hip (principal) ==

== ENCOUNTER → 2021-09-10 | Outpatient (CLI) | payer MEDICARE, MEDICAID ==
[~2021-09-10] MED LIST changes: +ISOVUE-300 61% 50ML VIAL As Ordered ONE; +LIDOCAINE 1% MDV 20ML VIAL As Ordered ONE; +TRIAMCINOLONE ACETONIDE SUSP 40 MG/ML VIAL (J3301) As Ordered ONE; +methylPREDNISolone 80MG/ML SUSP 1ML VIAL (J1040) As Ordered ONE
== END ==
LOC: M RADPRO 09:59
PROVIDERS: ATTEND Orthopaedic Surgery
DX: M16.11 Unilateral primary osteoarthritis, right hip (principal)
CPT/HCPCS: 20610; 77002; J1040; J3301; Q9967

== ENCOUNTER 2021-10-18 15:46 | Observation (INO) | payer MEDICARE, MEDICAID ==
[~2021-10-18] VITALS: Ht 157.5 cm; Wt 107.5 kg
[2021-10-18 12:47] VITALS: BP 116/76
[~2021-10-18 15:46] MED LIST changes: -ISOVUE-300 61% 50ML VIAL As Ordered ONE; -LIDOCAINE 1% MDV 20ML VIAL As Ordered ONE; -TRIAMCINOLONE ACETONIDE SUSP 40 MG/ML VIAL (J3301) As Ordered ONE; -methylPREDNISolone 80MG/ML SUSP 1ML VIAL (J1040) As Ordered ONE
[2021-10-18 17:44] LABS: BASO % 0.6 % (0.0-1.0); EOS # 0.3 10^3/uL (0.0-0.5); EOS % 3.5 % (0.0-3.0); HEMATOCRIT 38.2 % (36.0-47.0); HEMOGLOBIN 12.1 g/dl (12.0-15.5); LYMPH % 28.3 % (24.0-44.0); MEAN CORPUSCULAR HEMOGLOBIN 28.5 pg (27.0-33.0); MEAN CORPUSCULAR HGB CONC 31.7 g/dl (32.0-36.5); MEAN CORPUSCULAR VOLUME 89.9 fl (80.0-96.0); MONO # 0.7 10^3/uL (0.0-0.8); MONO % 9.2 % (2.0-8.0); NEUTROPHILS # 4.2 10^3/uL (1.5-8.5); NEUTROPHILS % 58.3 % (36.0-66.0); PLATELET COUNT, AUTOMATED 282 10^3/uL (150-450); RED BLOOD COUNT 4.25 10^6/uL (4.00-5.40); WHITE BLOOD COUNT 7.1 10^3/uL (4.0-10.0)
[2021-10-18 18:06] LABS: CK-MB VALUE MASS 1.1 NG/ML (<3.6); MB/CK RELATIVE INDEX 1.72 (< OR =4)
[2021-10-18 18:13] LABS: BLOOD UREA NITROGEN 20 MG/DL (7-18); CALCIUM LEVEL 9.1 MG/DL (8.8-10.2); CARBON DIOXIDE LEVEL 28 MEQ/L (21-32); CHLORIDE LEVEL 108 MEQ/L (98-107); FREE T4 1.19 NG/DL (0.76-1.46); GLOMERULAR FILTRATION RATE > 60.0 (>32); GLUCOSE, FASTING 100 MG/DL (70-100); POTASSIUM SERUM 4.1 MEQ/L (3.5-5.1); SODIUM LEVEL 143 MEQ/L (136-145)
[2021-10-18] MEDS ORDERED: ISOVUE-370 76% 100ML VIAL As Ordered ONE (18:31)
[2021-10-18 20:18] LABS: CK-MB VALUE MASS 1.3 NG/ML (<3.6); MB/CK RELATIVE INDEX 2.24 (< OR =4)
[2021-10-18] MEDS ORDERED: LABETALOL 100MG/20ML VIAL IV STA (21:04)
[2021-10-18 21:16] VITALS: O2SAT 96
[2021-10-18 22:30] LABS: RSV AMPLIFICATION NEGATIVE (NEGATIVE)
[2021-10-18] MEDS ORDERED: ASPIRIN 81 MG CHEW TABLET PO ONE (23:00)
[2021-10-18] MEDS ORDERED: HOME MED LIST COMPLETE! XX SCH (23:30)
[2021-10-19 01:00] VITALS: BP 116/76
[2021-10-19] MEDS: ATORVASTATIN 20 MG TAB PO SCH ×2 (01:23→20:05)
[2021-10-19 06:04] VITALS: BP 122/75
[2021-10-19 06:19] VITALS: BP 153/84
[2021-10-19 06:40] VITALS: BP 158/81
[2021-10-19] MEDS: ASPIRIN 81 MG CHEW TABLET PO SCH (08:03)
[2021-10-19 09:07] LABS: HEMATOCRIT 38.6 % (36.0-47.0); HEMOGLOBIN 12.4 g/dl (12.0-15.5); MEAN CORPUSCULAR HGB CONC 32.1 g/dl (32.0-36.5); MEAN CORPUSCULAR VOLUME 90.4 fl (80.0-96.0); PLATELET COUNT, AUTOMATED 288 10^3/uL (150-450); RED BLOOD COUNT 4.27 10^6/uL (4.00-5.40); WHITE BLOOD COUNT 6.5 10^3/uL (4.0-10.0)
[2021-10-19 09:26] LABS: ALBUMIN 3.3 GM/DL (3.2-5.2); ALT/SGPT 19 U/L (12-78); BILIRUBIN,TOTAL 0.4 MG/DL (0.2-1.0); BLOOD UREA NITROGEN 14 MG/DL (7-18); CALCIUM LEVEL 9.6 MG/DL (8.8-10.2); CARBON DIOXIDE LEVEL 24 MEQ/L (21-32); CHLORIDE LEVEL 110 MEQ/L (98-107); CREATININE FOR GFR 0.89 MG/DL (0.55-1.30); GLOMERULAR FILTRATION RATE > 60.0 (>32); GLUCOSE, FASTING 145 MG/DL (70-100); POTASSIUM SERUM 3.9 MEQ/L (3.5-5.1); SODIUM LEVEL 145 MEQ/L (136-145); TOTAL PROTEIN 7.1 GM/DL (6.4-8.2)
[2021-10-19 13:48] VITALS: BP 142/65
[2021-10-19 17:05] LABS: CHOLESTEROL LEVEL 179 MG/DL (<200); CHOLESTEROL RISK RATIO 3.891 (<5); HDL CHOLESTEROL 46 MG/DL (>40); LDL CHOLESTEROL 107 MG/DL (<100); NON-HDL-C 133 MG/DL; TRIGLYCERIDES LEVEL 132 MG/DL (<150)
[2021-10-19 22:00] VITALS: BP 158/82
[2021-10-20 06:00] VITALS: BP 145/71
[2021-10-20 06:12] LABS: HEMATOCRIT 39.3 % (36.0-47.0); HEMOGLOBIN 12.8 g/dl (12.0-15.5); MEAN CORPUSCULAR HEMOGLOBIN 29.3 pg (27.0-33.0); MEAN CORPUSCULAR HGB CONC 32.6 g/dl (32.0-36.5); MEAN CORPUSCULAR VOLUME 89.9 fl (80.0-96.0); PLATELET COUNT, AUTOMATED 263 10^3/uL (150-450); RED BLOOD COUNT 4.37 10^6/uL (4.00-5.40); WHITE BLOOD COUNT 7.8 10^3/uL (4.0-10.0)
[2021-10-20 06:45] LABS: BLOOD UREA NITROGEN 16 MG/DL (7-18); CALCIUM LEVEL 9.5 MG/DL (8.8-10.2); CARBON DIOXIDE LEVEL 23 MEQ/L (21-32); CHLORIDE LEVEL 109 MEQ/L (98-107); CREATININE FOR GFR 0.79 MG/DL (0.55-1.30); GLOMERULAR FILTRATION RATE > 60.0 (>32); GLUCOSE, FASTING 97 MG/DL (70-100); POTASSIUM SERUM 3.8 MEQ/L (3.5-5.1); SODIUM LEVEL 145 MEQ/L (136-145)
[2021-10-20 08:52] VITALS: BP 143/83
[2021-10-20] MEDS: ASPIRIN 81 MG CHEW TABLET PO SCH (08:52)
[2021-10-20] MEDS ORDERED: AMLO1TAB25 PO (09:49)
[2021-10-20] MEDS ORDERED: ATOR80TA59 PO (09:49)
[2021-10-20] MEDS ORDERED: ASPI81CH8 PO (09:49)
== END 2021-10-20 11:50 | disposition home or self-care (01) ==
LOC: M ED 15:46 → M ED INP 15:47 → ENRESERV 10-19 00:22 → M MSPAV 10-19 00:48
PROVIDERS: ADMIT Internal Medicine; ATTEND Family Medicine
DX: R27.0 Ataxia, unspecified (principal); G45.9 Transient cerebral ischemic attack, unspecified; I16.0 Hypertensive urgency; Z86.711 Personal history of pulmonary embolism; E03.9 Hypothyroidism, unspecified; Z79.01 Long term (current) use of anticoagulants; Z79.82 Long term (current) use of aspirin; Z79.899 Other long term (current) drug therapy; Z88.0 Allergy status to penicillin; Z88.2 Allergy status to sulfonamides; Z88.8 Allergy status to other drugs, medicaments and biological substances
CPT/HCPCS: 36415; 70450; 70551; 71046; 71275; 80048; 80053; 80061; 82550; 82553; 84439; 84443; 84484; 85025; 85027; 85379; 87631; 93005; 93041; 93306; 93880; 94760; 96374; 97116; 97161; 97165; 97530; 97535; 99285; G0378; Q9967

== ENCOUNTER → 2021-11-06 | Outpatient (REF) | payer MEDICARE, MEDICAID ==
[~2021-11-06] MED LIST changes: +AMLO1TAB25 PO; +ASPI81CH8 PO; +ATOR80TA59 PO
[2021-11-06 09:21] LABS: BASO # 0.1 10^3/uL (0.0-0.2); BASO % 0.8 % (0.0-1.0); EOS # 0.6 10^3/uL (0.0-0.5); EOS % 8.1 % (0.0-3.0); HEMOGLOBIN 12.6 g/dl (12.0-15.5); LYMPH % 26.5 % (24.0-44.0); MEAN CORPUSCULAR HEMOGLOBIN 28.8 pg (27.0-33.0); MEAN CORPUSCULAR HGB CONC 32.3 g/dl (32.0-36.5); MONO # 0.5 10^3/uL (0.0-0.8); MONO % 7.2 % (2.0-8.0); NEUTROPHILS # 4.3 10^3/uL (1.5-8.5); NEUTROPHILS % 57.1 % (36.0-66.0); PLATELET COUNT, AUTOMATED 349 10^3/uL (150-450); RED BLOOD COUNT 4.38 10^6/uL (4.00-5.40); WHITE BLOOD COUNT 7.5 10^3/uL (4.0-10.0)
[2021-11-06 09:57] LABS: ALT/SGPT 25 U/L (12-78); BILIRUBIN,TOTAL 0.6 MG/DL (0.2-1.0); BLOOD UREA NITROGEN 16 MG/DL (7-18); CALCIUM LEVEL 9.5 MG/DL (8.8-10.2); CARBON DIOXIDE LEVEL 27 MEQ/L (21-32); CHLORIDE LEVEL 109 MEQ/L (98-107); CHOLESTEROL LEVEL 126 MG/DL (<200); CREATININE FOR GFR 0.94 MG/DL (0.55-1.30); GLOMERULAR FILTRATION RATE > 60.0 (>32); GLUCOSE, FASTING 90 MG/DL (70-100); HDL CHOLESTEROL 60 MG/DL (>40); LDL CHOLESTEROL 42 MG/DL (<100); MAGNESIUM LEVEL 2.1 MG/DL (1.8-2.4); NON-HDL-C 66 MG/DL; POTASSIUM SERUM 4.2 MEQ/L (3.5-5.1); SODIUM LEVEL 141 MEQ/L (136-145); TOTAL PROTEIN 7.7 GM/DL (6.4-8.2); TRIGLYCERIDES LEVEL 121 MG/DL (<150)
== END ==
LOC: M LAB REF 08:54
PROVIDERS: ATTEND Internal Medicine
DX: E78.00 Pure hypercholesterolemia, unspecified (principal); G47.30 Sleep apnea, unspecified; E03.9 Hypothyroidism, unspecified; R25.2 Cramp and spasm

== ENCOUNTER → 2022-02-10 | Outpatient (CLI) | payer MEDICARE, MEDICAID ==
[~2022-02-10] MED LIST changes: +ISOVUE-300 61% 50ML VIAL As Ordered ONE; +LIDOCAINE 1% MDV 20ML VIAL As Ordered ONE; +methylPREDNISolone SUSP 40MG/ML 1ML VIAL (DEPO MEDROL) As Ordered ONE
== END ==
LOC: M RAD 13:52
PROVIDERS: ATTEND Physician Assistant
DX: M16.11 Unilateral primary osteoarthritis, right hip (principal)
CPT/HCPCS: 76000; J1030; Q9967

== ENCOUNTER → 2022-04-19 | Outpatient (REF) | payer MEDICARE, MEDICAID ==
[~2022-04-19] MED LIST changes: -ISOVUE-300 61% 50ML VIAL As Ordered ONE; -LIDOCAINE 1% MDV 20ML VIAL As Ordered ONE; -methylPREDNISolone SUSP 40MG/ML 1ML VIAL (DEPO MEDROL) As Ordered ONE
== END ==
LOC: M WUC 16:31
PROVIDERS: ATTEND Physician Assistant
DX: R30.0 Dysuria (principal)

== ENCOUNTER → 2022-05-05 | Outpatient (REF) | payer MEDICARE, MEDICAID ==
[2022-05-05 14:49] LABS: APPEARANCE, URINE MANUAL HAZY (CLEAR); COLOR, URINE MANUAL YELLOW (YELLOW)
[2022-05-05 14:50] LABS: PROTEIN, URINE MANUAL TRACE mg/dL (NEGATIVE)
[2022-05-05 14:51] LABS: BILIRUBIN, URINE MANUAL NEGATIVE (NEGATIVE); BLOOD URINE MANUAL TRACE (NEGATIVE); GLUCOSE, URINE (UA) MANUAL NEGATIVE (NEGATIVE); KETONE, URINE MANUAL NEGATIVE (NEGATIVE); LEUKOCYTE ESTERASE, URINE MAN POSITIVE (NEGATIVE); NITRITE, URINE MANUAL NEGATIVE (NEGATIVE); UROBILINOGEN, URINE MANUAL NORMAL (NORMAL)
[2022-05-05 15:01] LABS: WBC, URINE TNTC /hpf (0-3)
[2022-05-05 15:02] LABS: BACTERIA, URINE SMALL AMOUNT; SQUAMOUS EPITHELIAL CELL URINE SMALL AMOUNT /hpf (SMALL AMT)
[2022-05-05 15:03] LABS: HYALINE CAST, URINE NONE SEEN /lpf (0-1)
== END ==
LOC: M SFHCPLAZ 14:01
PROVIDERS: ATTEND Nurse Practitioner Family
DX: N39.0 Urinary tract infection, site not specified (principal)

== ENCOUNTER → 2022-07-28 | Outpatient (CLI) | payer MEDICARE, MEDICAID ==
[2022-07-28 13:43] LABS: HEMATOCRIT 38.2 % (36.0-47.0); HEMOGLOBIN 11.8 g/dl (12.0-15.5); MEAN CORPUSCULAR HEMOGLOBIN 28.5 pg (27.0-33.0); MEAN CORPUSCULAR HGB CONC 30.9 g/dl (32.0-36.5); MEAN CORPUSCULAR VOLUME 92.3 fl (80.0-96.0); PLATELET COUNT, AUTOMATED 333 10^3/uL (150-450); RED BLOOD COUNT 4.14 10^6/uL (4.00-5.40); WHITE BLOOD COUNT 8.2 10^3/uL (4.0-10.0)
[2022-07-28 14:04] LABS: BLOOD UREA NITROGEN 19 MG/DL (9-23); CALCIUM LEVEL 9.3 MG/DL (8.3-10.6); CARBON DIOXIDE LEVEL 29 MMOL/L (20-31); CHLORIDE LEVEL 104 MMOL/L (98-107); CREATININE FOR GFR 0.85 MG/DL (0.55-1.30); GLOMERULAR FILTRATION RATE > 60.0 (>32); GLUCOSE, FASTING 78 MG/DL (74-106); POTASSIUM SERUM 4.4 MMOL/L (3.5-5.1); SODIUM LEVEL 138 MMOL/L (136-145)
== END ==
LOC: M PLALAB 10:51 → M PLAIMG 10:51
PROVIDERS: ATTEND Internal Medicine Hematology
DX: Z01.818 Encounter for other preprocedural examination (principal); I51.7 Cardiomegaly

== ENCOUNTER → 2022-09-23 | Outpatient (REF) | payer MEDICARE, MEDICAID ==
[2022-09-23 16:09] LABS: APPEARANCE, URINE CLOUDY (CLEAR); BACTERIA, URINE AUTO 1+ (NEGATIVE); BILIRUBIN, URINE AUTO NEGATIVE (NEGATIVE); BLOOD, URINE BLOOD 1+ (NEGATIVE); COLOR, URINE AMBER (YELLOW); GLUCOSE, URINE (UA) AUTO NEGATIVE (NEGATIVE); KETONE, URINE AUTO NEGATIVE (NEGATIVE); LEUKOCYTE ESTERASE, URINE AUTO 3+ (NEGATIVE); NITRITE, URINE AUTO POSITIVE (NEGATIVE); PROTEIN, URINE AUTO NEGATIVE (NEGATIVE); RBC, URINE AUTO 14 /HPF (0-3); SQUAMOUS EPITHELIAL CELL UR AU 2 /HPF (0-6); UROBILINOGEN, URINE AUTO 0.2 mg/dL (0.0-2.0); WBC, URINE AUTO TNTC /HPF (0-3)
== END ==
LOC: M SFHCPLAZ 15:34
PROVIDERS: ATTEND Internal Medicine Hematology
DX: N39.0 Urinary tract infection, site not specified (principal)

== ENCOUNTER → 2022-09-29 | Outpatient (REF) | payer MEDICARE, MEDICAID ==
[2022-09-29 12:17] LABS: HEMATOCRIT 29.8 % (36.0-47.0); HEMOGLOBIN 8.9 g/dl (12.0-15.5); MEAN CORPUSCULAR HEMOGLOBIN 23.8 pg (27.0-33.0); MEAN CORPUSCULAR HGB CONC 29.9 g/dl (32.0-36.5); MEAN CORPUSCULAR VOLUME 79.7 fl (80.0-96.0); PLATELET COUNT, AUTOMATED 463 10^3/uL (150-450); RED BLOOD COUNT 3.74 10^6/uL (4.00-5.40); WHITE BLOOD COUNT 8.4 10^3/uL (4.0-10.0)
[2022-09-29 12:53] LABS: C REACTIVE PROTEIN QUANTITATIV < 0.40 MG/DL (<1.0); IRON (FE) 25 UG/DL (50-170)
[2022-09-29 12:54] LABS: ALBUMIN 3.5 G/DL (3.2-5.2); ALKALINE PHOSPHATASE 118 U/L (46-116); ALT/SGPT 19 U/L (7.0-40); AST/SGOT 25 U/L (<34); BILIRUBIN,TOTAL 0.4 MG/DL (0.3-1.2); BLOOD UREA NITROGEN 17 MG/DL (9-23); CALCIUM LEVEL 8.7 MG/DL (8.3-10.6); CARBON DIOXIDE LEVEL 24 MMOL/L (20-31); CHLORIDE LEVEL 107 MMOL/L (98-107); CREATININE FOR GFR 0.93 MG/DL (0.55-1.30); FERRITIN 11.7 NG/ML (7.3-270.7); GLOMERULAR FILTRATION RATE > 60.0 (>32); GLUCOSE, FASTING 97 MG/DL (74-106); PERCENT SATURATION 7.1 % (13.2-45.0); POTASSIUM SERUM 4.2 MMOL/L (3.5-5.1); SODIUM LEVEL 140 MMOL/L (136-145); THYROID STIMULATING HORMONE 2.648 uIU/ML (0.55-4.78); TOTAL IRON BINDING CAPACITY 352 UG/DL (250-425); TOTAL PROTEIN 6.9 G/DL (5.7-8.2)
[2022-09-29 12:55] LABS: TOTAL 25(OH) VITAMIN D 25.4 NG/ML (20.0-100.0); VITAMIN B12 LEVEL 615 PG/ML (211-911)
[2022-09-29 13:43] LABS: HEMOGLOBIN A1c 5.5 % (4.0-6.0)
== END ==
LOC: M SFHCPLAZ 11:17
PROVIDERS: ATTEND Internal Medicine Hematology
DX: E78.00 Pure hypercholesterolemia, unspecified (principal); Z86.2 Personal history of diseases of the blood and blood-forming organs and certain disorders involving the immune mechanism; D50.9 Iron deficiency anemia, unspecified

== ENCOUNTER → 2022-10-06 | Outpatient (REF) | payer MEDICARE, MEDICAID ==
[2022-10-06 11:57] LABS: BLOOD UREA NITROGEN 20 MG/DL (9-23); CALCIUM LEVEL 8.5 MG/DL (8.3-10.6); CARBON DIOXIDE LEVEL 26 MMOL/L (20-31); CHLORIDE LEVEL 105 MMOL/L (98-107); CREATININE FOR GFR 0.92 MG/DL (0.55-1.30); GLOMERULAR FILTRATION RATE > 60.0 (>32); GLUCOSE, FASTING 114 MG/DL (74-106); POTASSIUM SERUM 4.3 MMOL/L (3.5-5.1); SODIUM LEVEL 140 MMOL/L (136-145)
== END ==
LOC: M SFHCPLAZ 10:59
PROVIDERS: ATTEND Internal Medicine Hematology
DX: R60.0 Localized edema (principal)

== ENCOUNTER → 2023-04-19 | Outpatient (REF) | payer MEDICARE, MEDICAID ==
[2023-04-19 12:30] LABS: MEAN CORPUSCULAR HEMOGLOBIN 29.2 pg (27.0-33.0); MEAN CORPUSCULAR HGB CONC 33.3 g/dl (32.0-36.5); MEAN CORPUSCULAR VOLUME 87.7 fl (80.0-96.0); PLATELET COUNT, AUTOMATED 294 10^3/uL (150-450); RED BLOOD COUNT 4.79 10^6/uL (4.00-5.40); WHITE BLOOD COUNT 6.9 10^3/uL (4.0-10.0)
[2023-04-19 12:51] LABS: HEMOGLOBIN A1c 5.4 % (4.0-6.0)
[2023-04-19 12:59] LABS: C REACTIVE PROTEIN QUANTITATIV < 0.40 MG/DL (<1.0)
[2023-04-19 13:01] LABS: ALBUMIN 3.7 G/DL (3.2-5.2); ALKALINE PHOSPHATASE 102 U/L (46-116); ALT/SGPT 21 U/L (7.0-40); AST/SGOT 22 U/L (<34); BILIRUBIN,TOTAL 0.4 MG/DL (0.3-1.2); BLOOD UREA NITROGEN 19 MG/DL (9-23); CALCIUM LEVEL 9.2 MG/DL (8.3-10.6); CARBON DIOXIDE LEVEL 24 MMOL/L (20-31); CHLORIDE LEVEL 109 MMOL/L (98-107); CHOLESTEROL LEVEL 116 MG/DL (<200); CHOLESTEROL RISK RATIO 2.31 (<5); CREATININE FOR GFR 0.79 MG/DL (0.55-1.30); CREATININE, URINE 52.5 MG/DL; GLOMERULAR FILTRATION RATE > 60.0 (>32); GLUCOSE, FASTING 90 MG/DL (74-106); HDL CHOLESTEROL 50.2 MG/DL (>40); LDL CHOLESTEROL 48.2 MG/DL (<100); NON-HDL-C 65.8 MG/DL; POTASSIUM SERUM 4.2 MMOL/L (3.5-5.1); SODIUM LEVEL 142 MMOL/L (136-145); TOTAL PROTEIN 7.4 G/DL (5.7-8.2); TRIGLYCERIDES LEVEL 88 MG/DL (<150)
[2023-04-19 13:02] LABS: MALB URINE SIEMENS < 3.0 MG/L; MAU/CREAT RATIO 5.7 MCG/MG (0.0-30.0)
[2023-04-19 13:04] LABS: VITAMIN B12 LEVEL 1115 PG/ML (211-911)
[2023-04-19 13:05] LABS: THYROID STIMULATING HORMONE 5.816 uIU/ML (0.55-4.78)
[2023-04-19 13:06] LABS: TOTAL 25(OH) VITAMIN D 24.5 NG/ML (20.0-100.0)
[2023-04-19 13:07] LABS: FREE T4 1.09 NG/DL (0.89-1.76)
== END ==
LOC: M SFHCPLAZ 10:27
PROVIDERS: ATTEND Internal Medicine Hematology
DX: E78.00 Pure hypercholesterolemia, unspecified (principal)

== ENCOUNTER → 2023-07-20 | Outpatient (REF) | payer MEDICARE, MEDICAID ==
[2023-07-20 12:12] LABS: FERRITIN 13.9 NG/ML (7.3-270.7); THYROID STIMULATING HORMONE 3.103 uIU/ML (0.55-4.78)
== END ==
LOC: M SFHCPLAZ 10:58
PROVIDERS: ATTEND Internal Medicine Hematology
DX: Z86.2 Personal history of diseases of the blood and blood-forming organs and certain disorders involving the immune mechanism (principal)

== ENCOUNTER → 2023-08-10 | Outpatient (REF) | payer MEDICARE, MEDICAID | LOC: M SFHCPLAZ 14:53 | PROVIDERS: ATTEND Internal Medicine Hematology | DX: Z86.2 Personal history of diseases of the blood and blood-forming organs and certain disorders involving the immune mechanism (principal) ==

== ENCOUNTER → 2023-08-17 | Outpatient (REF) | payer MEDICARE, MEDICAID ==
[2023-08-17 11:09] LABS: BASO # 0.1 10^3/uL (0.0-0.2); EOS # 0.3 10^3/uL (0.0-0.5); HEMATOCRIT 41.4 % (36.0-47.0); HEMOGLOBIN 13.6 g/dl (12.0-15.5); LYMPH # 1.9 10^3/uL (1.5-5.0); LYMPH % 29.8 % (24.0-44.0); MEAN CORPUSCULAR HEMOGLOBIN 28.4 pg (27.0-33.0); MEAN CORPUSCULAR HGB CONC 32.9 g/dl (32.0-36.5); MEAN CORPUSCULAR VOLUME 86.4 fl (80.0-96.0); MONO # 0.5 10^3/uL (0.0-0.8); NEUTROPHILS # 3.5 10^3/uL (1.5-8.5); NEUTROPHILS % 55.9 % (36.0-66.0); PLATELET COUNT, AUTOMATED 296 10^3/uL (150-450); RED BLOOD COUNT 4.79 10^6/uL (4.00-5.40); WHITE BLOOD COUNT 6.3 10^3/uL (4.0-10.0)
[2023-08-17 11:24] LABS: HEMOGLOBIN A1c 5.6 % (4.0-6.0)
[2023-08-17 11:37] LABS: CREATININE, URINE 29.4 MG/DL; MALB URINE SIEMENS < 3.0 MG/L; MAU/CREAT RATIO 10.2 MCG/MG (0.0-30.0)
[2023-08-17 11:38] LABS: ALBUMIN 3.3 G/DL (3.2-5.2); ALKALINE PHOSPHATASE 112 U/L (46-116); ALT/SGPT 19 U/L (7.0-40); AST/SGOT 18 U/L (<34); BILIRUBIN,TOTAL 0.6 MG/DL (0.3-1.2); BLOOD UREA NITROGEN 20 MG/DL (9-23); CALCIUM LEVEL 8.9 MG/DL (8.3-10.6); CARBON DIOXIDE LEVEL 25 MMOL/L (20-31); CHLORIDE LEVEL 107 MMOL/L (98-107); CHOLESTEROL LEVEL 186 MG/DL (<200); CREATININE FOR GFR 0.84 MG/DL (0.55-1.30); GLOMERULAR FILTRATION RATE > 60.0 (>32); GLUCOSE, FASTING 93 MG/DL (74-106); HDL CHOLESTEROL 46.5 MG/DL (>40); LDL CHOLESTEROL 109.5 MG/DL (<100); NON-HDL-C 139.5 MG/DL; POTASSIUM SERUM 3.9 MMOL/L (3.5-5.1); SODIUM LEVEL 141 MMOL/L (136-145); TOTAL PROTEIN 7.2 G/DL (5.7-8.2); TRIGLYCERIDES LEVEL 150 MG/DL (<150)
[2023-08-17 11:39] LABS: THYROID STIMULATING HORMONE 3.819 uIU/ML (0.55-4.78)
[2023-08-17 11:40] LABS: VITAMIN B12 LEVEL 889 PG/ML (211-911)
== END ==
LOC: M SFHCPLAZ 10:23
PROVIDERS: ATTEND Internal Medicine Hematology
DX: I42.9 Cardiomyopathy, unspecified (principal); E07.9 Disorder of thyroid, unspecified; E78.00 Pure hypercholesterolemia, unspecified

== ENCOUNTER 2023-11-01 12:29 | Outpatient (RCR) | payer MEDICARE, MEDICAID | END 2023-11-30 | LOC: M PT 12:29 | PROVIDERS: ATTEND Internal Medicine Hematology | DX: Z74.09 Other reduced mobility (principal) ==

== ENCOUNTER 2024-02-29 11:21 | Inpatient (IN) | payer MEDICARE, MEDICAID ==
[~2024-02-29] VITALS: Ht 157.5 cm; Wt 94.0 kg
[2024-02-29 13:28] LABS: BASO # 0.1 10^3/uL (0.0-0.2); BASO % 0.6 % (0.0-1.0); EOS # 0.2 10^3/uL (0.0-0.5); EOS % 2.1 % (0.0-3.0); HEMATOCRIT 42.4 % (36.0-47.0); HEMOGLOBIN 14.3 g/dl (12.0-15.5); LYMPH # 1.7 10^3/uL (1.5-5.0); LYMPH % 19.4 % (24.0-44.0); MEAN CORPUSCULAR HEMOGLOBIN 29.6 pg (27.0-33.0); MEAN CORPUSCULAR HGB CONC 33.7 g/dl (32.0-36.5); MEAN CORPUSCULAR VOLUME 87.8 fl (80.0-96.0); MONO # 0.8 10^3/uL (0.0-0.8); MONO % 9.2 % (2.0-8.0); NEUTROPHILS # 6.1 10^3/uL (1.5-8.5); NEUTROPHILS % 68.4 % (36.0-66.0); RED BLOOD COUNT 4.83 10^6/uL (4.00-5.40); WHITE BLOOD COUNT 8.9 10^3/uL (4.0-10.0)
[2024-02-29 13:40] LABS: ALBUMIN 3.7 G/DL (3.2-5.2); ALKALINE PHOSPHATASE 111 U/L (35-104); ALT/SGPT 34 U/L (7.0-40); AST/SGOT 37 U/L (<34); BILIRUBIN,TOTAL 0.8 MG/DL (0.3-1.2); BLOOD UREA NITROGEN 20 MG/DL (9-23); CALCIUM LEVEL 9.2 MG/DL (8.3-10.6); CARBON DIOXIDE LEVEL 26 MMOL/L (20-31); CHLORIDE LEVEL 109 MMOL/L (98-107); CREATININE FOR GFR 0.82 MG/DL (0.55-1.30); GLOMERULAR FILTRATION RATE > 60.0 (>32); GLUCOSE, FASTING 101 MG/DL (74-106); POTASSIUM SERUM 3.9 MMOL/L (3.5-5.1); SODIUM LEVEL 142 MMOL/L (136-145); TOTAL PROTEIN 7.9 G/DL (5.7-8.2)
[2024-02-29 13:44] LABS: PLATELET COUNT, AUTOMATED 1 10^3/uL (150-450)
[2024-02-29 13:50] LABS: INR 1.28; PARTIAL THROMBOPLASTIN TIME 31.3 SECONDS (24.8-34.2); PROTHROMBIN TIME 16.3 SECONDS (12.5-14.5)
[2024-02-29] MEDS ORDERED: IMMUNE GLOBULIN IV SCH (15:55)
[2024-02-29] MEDS: PANTOPRAZOLE 40MG VIAL IV ONE (16:34)
[2024-02-29] MEDS: predniSONE 10MG TAB PO ONE (16:35)
[2024-02-29] MEDS ORDERED: ACETAMINOPHEN 325 MG TAB PO PRN (17:40)
[2024-02-29] MEDS ORDERED: IMMUNE GLOBULIN 10% 0 GM in IV 1 EA IV SCH (17:45)
[2024-02-29] MEDS: IMMUNE GLOBULIN 10% 5 GM in IV 1 EA IV ONE (17:50)
[2024-02-29] MEDS ORDERED: FERR325T3 PO (18:26)
[2024-02-29] MEDS ORDERED: AMLO1TAB24 PO (18:26)
[2024-02-29] MEDS ORDERED: CLON2TAB7 PO (18:26)
[2024-02-29] MEDS ORDERED: ATOR80TA59 PO (18:26)
[2024-02-29] MEDS ORDERED: GABA-1171 PO (18:29)
[2024-02-29] MEDS ORDERED: MELA5TAB37 PO (18:29)
[2024-02-29] MEDS ORDERED: PANT-23 PO (18:29)
[2024-02-29] MEDS ORDERED: HOME MED LIST COMPLETE! XX SCH (18:30)
[2024-02-29] MEDS: IMMUNE GLOBULIN 10% 10 GM in IV 1 EA IV ONE (19:04)
[2024-02-29] MEDS: IMMUNE GLOBULIN 10% 80 GM in IV 1 EA IV ONE (20:55)
[2024-03-01 04:55] LABS: HEMATOCRIT 35.1 % (36.0-47.0); MEAN CORPUSCULAR HEMOGLOBIN 29.2 pg (27.0-33.0); MEAN CORPUSCULAR VOLUME 88.4 fl (80.0-96.0); RED BLOOD COUNT 3.97 10^6/uL (4.00-5.40); WHITE BLOOD COUNT 5.8 10^3/uL (4.0-10.0)
[2024-03-01 05:00] LABS: HEMOGLOBIN 11.6 g/dl (12.0-15.5)
[2024-03-01 05:02] LABS: PLATELET COUNT, AUTOMATED 3 10^3/uL (150-450)
[2024-03-01 05:34] LABS: BLOOD UREA NITROGEN 21 MG/DL (9-23); CALCIUM LEVEL 8.8 MG/DL (8.3-10.6); CARBON DIOXIDE LEVEL 24 MMOL/L (20-31); CHLORIDE LEVEL 109 MMOL/L (98-107); GLOMERULAR FILTRATION RATE > 60.0 (>32); GLUCOSE, FASTING 175 MG/DL (74-106); POTASSIUM SERUM 3.6 MMOL/L (3.5-5.1); SODIUM LEVEL 138 MMOL/L (136-145)
[2024-03-01] MEDS: LEVOTHYROXINE 75MCG TABLET (0.075MG) PO SCH (07:39)
[2024-03-01] MEDS: predniSONE 10MG TAB PO SCH (09:00)
[2024-03-01] MEDS: FUROSEMIDE 20 MG TAB PO SCH (09:14)
[2024-03-01] MEDS: GABAPENTIN 100 MG CAP PO SCH (09:15)
[2024-03-01] MEDS: amLODIPine 5 MG TAB PO SCH (09:16)
[2024-03-01] MEDS: PANTOPRAZOLE 40MG TAB (PROTONIX) PO SCH (09:17)
[2024-03-01 11:20] VITALS: BP 150/65; TEMP 97.5; O2SAT 98
[2024-03-01 14:00] VITALS: BP 133/64; TEMP 97.3; O2SAT 96
[2024-03-01 14:28] VITALS: BP 160/81; TEMP 98.1; O2SAT 98
[2024-03-01 16:41] VITALS: BP 131/67; TEMP 98.1; O2SAT 98
[2024-03-01] MEDS: IMMUNE GLOBULIN 10% 10 GM in IV 1 EA IV ONE (17:29)
[2024-03-01] MEDS: IMMUNE GLOBULIN 10% 5 GM in IV 1 EA IV ONE (18:53)
[2024-03-01 19:06] LABS: HEMATOCRIT 35.9 % (36.0-47.0); HEMOGLOBIN 11.9 g/dl (12.0-15.5); MEAN CORPUSCULAR HGB CONC 33.1 g/dl (32.0-36.5); MEAN CORPUSCULAR VOLUME 87.3 fl (80.0-96.0); RED BLOOD COUNT 4.11 10^6/uL (4.00-5.40)
[2024-03-01 19:09] LABS: PLATELET COUNT, AUTOMATED 25 10^3/uL (150-450)
[2024-03-01] MEDS: IMMUNE GLOBULIN 10% 80 GM in IV 1 EA IV ONE (19:12)
[2024-03-01] MEDS: ATORVASTATIN 20 MG TAB PO SCH (20:14)
[2024-03-01] MEDS: clonazePAM 1 MG TAB PO SCH (20:15)
[2024-03-01 20:39] VITALS: BP 143/66; TEMP 97.7; O2SAT 94
[2024-03-02 03:30] VITALS: BP 142/67; TEMP 97.9; O2SAT 93
[2024-03-02 05:46] LABS: HEMATOCRIT 34.1 % (36.0-47.0); HEMOGLOBIN 11.2 g/dl (12.0-15.5); MEAN CORPUSCULAR HGB CONC 32.8 g/dl (32.0-36.5); MEAN CORPUSCULAR VOLUME 88.3 fl (80.0-96.0); RED BLOOD COUNT 3.86 10^6/uL (4.00-5.40); WHITE BLOOD COUNT 8.6 10^3/uL (4.0-10.0)
[2024-03-02 05:50] LABS: PLATELET COUNT, AUTOMATED 32 10^3/uL (150-450)
[2024-03-02 07:45] VITALS: BP 152/78; TEMP 97.9; O2SAT 97
[2024-03-02 12:30] VITALS: BP 166/68; TEMP 97.9; O2SAT 94
[2024-03-02 20:00] VITALS: BP 151/73; TEMP 97.9; O2SAT 93
[2024-03-03 03:39] VITALS: BP 151/73; TEMP 98.1; O2SAT 95
[2024-03-03 08:17] LABS: HEMOGLOBIN 12.6 g/dl (12.0-15.5); MEAN CORPUSCULAR HEMOGLOBIN 29.3 pg (27.0-33.0); MEAN CORPUSCULAR HGB CONC 33.2 g/dl (32.0-36.5); MEAN CORPUSCULAR VOLUME 88.4 fl (80.0-96.0); WHITE BLOOD COUNT 9.9 10^3/uL (4.0-10.0)
[2024-03-03 08:20] LABS: PLATELET COUNT, AUTOMATED 69 10^3/uL (150-450)
[2024-03-03 09:10] LABS: BLOOD UREA NITROGEN 32 MG/DL (9-23); CALCIUM LEVEL 8.6 MG/DL (8.3-10.6); CARBON DIOXIDE LEVEL 27 MMOL/L (20-31); CHLORIDE LEVEL 108 MMOL/L (98-107); CREATININE FOR GFR 0.73 MG/DL (0.55-1.30); GLOMERULAR FILTRATION RATE > 60.0 (>32); GLUCOSE, FASTING 123 MG/DL (74-106); POTASSIUM SERUM 2.9 MMOL/L (3.5-5.1); SODIUM LEVEL 140 MMOL/L (136-145)
[2024-03-03] MEDS: predniSONE 20 MG TAB PO SCH (09:23)
[2024-03-03 09:56] LABS: MAGNESIUM LEVEL 2.1 MG/DL (1.8-2.4)
[2024-03-03] MEDS: POTASSIUM CHLORIDE 10MEQ SR TABLET PO SCH (10:00)
[2024-03-03 12:00] VITALS: BP 140/64; TEMP 98.1; O2SAT 95
[2024-03-03] MEDS: APIXABAN 5 MG TAB (ELIQUIS) PO SCH (13:29)
[2024-03-03 20:00] VITALS: BP 163/85; TEMP 97.7; O2SAT 93
[2024-03-04 03:50] VITALS: BP 164/91; TEMP 97.7; O2SAT 92
[2024-03-04 06:43] LABS: MEAN CORPUSCULAR HEMOGLOBIN 29.1 pg (27.0-33.0); MEAN CORPUSCULAR HGB CONC 33.3 g/dl (32.0-36.5); MEAN CORPUSCULAR VOLUME 87.4 fl (80.0-96.0); PLATELET COUNT, AUTOMATED 105 10^3/uL (150-450); RED BLOOD COUNT 4.46 10^6/uL (4.00-5.40); WHITE BLOOD COUNT 9.3 10^3/uL (4.0-10.0)
[2024-03-04 07:16] LABS: BLOOD UREA NITROGEN 28 MG/DL (9-23); CALCIUM LEVEL 9.1 MG/DL (8.3-10.6); CARBON DIOXIDE LEVEL 24 MMOL/L (20-31); CHLORIDE LEVEL 109 MMOL/L (98-107); CREATININE FOR GFR 0.73 MG/DL (0.55-1.30); GLOMERULAR FILTRATION RATE > 60.0 (>32); GLUCOSE, FASTING 80 MG/DL (74-106); POTASSIUM SERUM 3.8 MMOL/L (3.5-5.1); SODIUM LEVEL 140 MMOL/L (136-145)
[2024-03-04 12:00] VITALS: BP 140/64; TEMP 97.9; O2SAT 96
[2024-03-04 19:51] VITALS: BP 132/77; TEMP 98.1; O2SAT 96
[2024-03-05 03:51] VITALS: BP 146/81; TEMP 97.5; O2SAT 96
[2024-03-05 06:12] LABS: HEMATOCRIT 38.8 % (36.0-47.0); MEAN CORPUSCULAR HEMOGLOBIN 28.9 pg (27.0-33.0); MEAN CORPUSCULAR HGB CONC 33.5 g/dl (32.0-36.5); MEAN CORPUSCULAR VOLUME 86.2 fl (80.0-96.0); PLATELET COUNT, AUTOMATED 167 10^3/uL (150-450); WHITE BLOOD COUNT 9.4 10^3/uL (4.0-10.0)
[2024-03-05 06:37] LABS: BLOOD UREA NITROGEN 32 MG/DL (9-23); CALCIUM LEVEL 9.3 MG/DL (8.3-10.6); CARBON DIOXIDE LEVEL 28 MMOL/L (20-31); CHLORIDE LEVEL 105 MMOL/L (98-107); CREATININE FOR GFR 0.78 MG/DL (0.55-1.30); GLOMERULAR FILTRATION RATE > 60.0 (>32); GLUCOSE, FASTING 72 MG/DL (74-106); POTASSIUM SERUM 4.1 MMOL/L (3.5-5.1); SODIUM LEVEL 139 MMOL/L (136-145)
[2024-03-05 08:12] VITALS: BP 137/77
[2024-03-05] MEDS ORDERED: PRED10TA2 PO (11:07)
[2024-03-05 12:00] VITALS: BP 156/74; TEMP 97.5; O2SAT 94
[2024-03-05] MEDS ORDERED: PHEN26CR TOP (13:20)
== END 2024-03-05 14:10 | DRG 813 ==
LOC: M ED 11:21 → M ED INP 20:05 → M ICU 03-01 11:20 → M MS5PR 03-01 13:35
PROVIDERS: ADMIT Student in an Organized Health Care Education/Training Program; ATTEND Student in an Organized Health Care Education/Training Program
PROC: 30233R1 Transfusion of Nonautologous Platelets into Peripheral Vein, Percutaneous Approach (ICD-10-PCS; principal; 2024-03-01)
DX: D69.3 Immune thrombocytopenic purpura (principal); I42.9 Cardiomyopathy, unspecified; E78.5 Hyperlipidemia, unspecified; M19.90 Unspecified osteoarthritis, unspecified site; G47.33 Obstructive sleep apnea (adult) (pediatric); D50.9 Iron deficiency anemia, unspecified; K21.9 Gastro-esophageal reflux disease without esophagitis; U09.9 Post COVID-19 condition, unspecified; G25.81 Restless legs syndrome; E03.9 Hypothyroidism, unspecified; I10 Essential (primary) hypertension; F41.9 Anxiety disorder, unspecified; Z66 Do not resuscitate; Z79.01 Long term (current) use of anticoagulants; Z79.890 Hormone replacement therapy; Z79.899 Other long term (current) drug therapy; Z88.0 Allergy status to penicillin; Z88.2 Allergy status to sulfonamides; Z88.8 Allergy status to other drugs, medicaments and biological substances; Z80.3 Family history of malignant neoplasm of breast; Z86.711 Personal history of pulmonary embolism; Z86.718 Personal history of other venous thrombosis and embolism; Z90.13 Acquired absence of bilateral breasts and nipples; Z90.79 Acquired absence of other genital organ(s); Z96.651 Presence of right artificial knee joint; Z98.49 Cataract extraction status, unspecified eye

== ENCOUNTER → 2024-04-04 | Outpatient (REF) | payer MEDICARE, MEDICAID ==
[~2024-04-04] MED LIST changes: +AMLO1TAB24 PO; +CLON2TAB7 PO; +FERR325T3 PO; +GABA-1171 PO; +MELA5TAB37 PO; +PANT-23 PO; +PHEN26CR TOP; +PRED10TA2 PO
[2024-04-04 09:56] LABS: BASO # 0.1 10^3/uL (0.0-0.2); BASO % 0.4 % (0.0-1.0); EOS # 0.2 10^3/uL (0.0-0.5); EOS % 1.2 % (0.0-3.0); HEMATOCRIT 44.4 % (36.0-47.0); HEMOGLOBIN 14.4 g/dl (12.0-15.5); LYMPH # 4.4 10^3/uL (1.5-5.0); LYMPH % 31.7 % (24.0-44.0); MEAN CORPUSCULAR HEMOGLOBIN 29.8 pg (27.0-33.0); MEAN CORPUSCULAR HGB CONC 32.4 g/dl (32.0-36.5); MEAN CORPUSCULAR VOLUME 91.7 fl (80.0-96.0); MONO # 0.9 10^3/uL (0.0-0.8); MONO % 6.3 % (2.0-8.0); NEUTROPHILS # 8.3 10^3/uL (1.5-8.5); PLATELET COUNT, AUTOMATED 208 10^3/uL (150-450); RED BLOOD COUNT 4.84 10^6/uL (4.00-5.40); WHITE BLOOD COUNT 13.8 10^3/uL (4.0-10.0)
[2024-04-04 10:34] LABS: FERRITIN 47.7 NG/ML (7.3-270.7); THYROID STIMULATING HORMONE 3.136 uIU/ML (0.55-4.78)
[2024-04-04 10:35] LABS: FREE T4 1.38 NG/DL (0.89-1.76)
== END ==
PROVIDERS: ATTEND Student in an Organized Health Care Education/Training Program
DX: R25.2 Cramp and spasm (principal); E03.9 Hypothyroidism, unspecified; Z86.2 Personal history of diseases of the blood and blood-forming organs and certain disorders involving the immune mechanism

== ENCOUNTER → 2024-04-06 | Outpatient (REF) | payer MEDICARE, MEDICAID ==
[2024-04-06 08:57] LABS: BASO % 0.3 % (0.0-1.0); EOS # 0.1 10^3/uL (0.0-0.5); EOS % 1.1 % (0.0-3.0); HEMATOCRIT 42.4 % (36.0-47.0); HEMOGLOBIN 13.7 g/dl (12.0-15.5); LYMPH # 3.9 10^3/uL (1.5-5.0); LYMPH % 32.3 % (24.0-44.0); MEAN CORPUSCULAR HEMOGLOBIN 29.5 pg (27.0-33.0); MEAN CORPUSCULAR HGB CONC 32.3 g/dl (32.0-36.5); MEAN CORPUSCULAR VOLUME 91.2 fl (80.0-96.0); MONO # 0.8 10^3/uL (0.0-0.8); MONO % 6.3 % (2.0-8.0); NEUTROPHILS # 7.2 10^3/uL (1.5-8.5); NEUTROPHILS % 59.7 % (36.0-66.0); PLATELET COUNT, AUTOMATED 241 10^3/uL (150-450); RED BLOOD COUNT 4.65 10^6/uL (4.00-5.40)
== END ==
PROVIDERS: ATTEND Internal Medicine Hematology
DX: D69.3 Immune thrombocytopenic purpura (principal)

== ENCOUNTER → 2024-04-13 | Outpatient (REF) | payer MEDICARE, MEDICAID ==
[2024-04-13 10:53] LABS: BASO % 0.3 % (0.0-1.0); EOS # 0.1 10^3/uL (0.0-0.5); EOS % 1.5 % (0.0-3.0); HEMATOCRIT 39.4 % (36.0-47.0); HEMOGLOBIN 12.9 g/dl (12.0-15.5); LYMPH # 1.3 10^3/uL (1.5-5.0); LYMPH % 13.3 % (24.0-44.0); MEAN CORPUSCULAR HEMOGLOBIN 29.7 pg (27.0-33.0); MEAN CORPUSCULAR HGB CONC 32.7 g/dl (32.0-36.5); MEAN CORPUSCULAR VOLUME 90.8 fl (80.0-96.0); MONO # 0.7 10^3/uL (0.0-0.8); MONO % 7.8 % (2.0-8.0); NEUTROPHILS # 7.2 10^3/uL (1.5-8.5); NEUTROPHILS % 76.7 % (36.0-66.0); PLATELET COUNT, AUTOMATED 316 10^3/uL (150-450); RED BLOOD COUNT 4.34 10^6/uL (4.00-5.40); WHITE BLOOD COUNT 9.5 10^3/uL (4.0-10.0)
== END ==
PROVIDERS: ATTEND Internal Medicine Hematology
DX: D69.3 Immune thrombocytopenic purpura (principal)

== ENCOUNTER → 2024-04-20 | Outpatient (REF) | payer MEDICARE, MEDICAID ==
[2024-04-20 08:16] LABS: BASO # 0.1 10^3/uL (0.0-0.2); BASO % 0.6 % (0.0-1.0); EOS # 0.2 10^3/uL (0.0-0.5); EOS % 2.2 % (0.0-3.0); HEMATOCRIT 41.1 % (36.0-47.0); HEMOGLOBIN 13.4 g/dl (12.0-15.5); LYMPH # 1.1 10^3/uL (1.5-5.0); LYMPH % 10.5 % (24.0-44.0); MEAN CORPUSCULAR HEMOGLOBIN 29.3 pg (27.0-33.0); MEAN CORPUSCULAR HGB CONC 32.6 g/dl (32.0-36.5); MEAN CORPUSCULAR VOLUME 89.9 fl (80.0-96.0); MONO # 1.1 10^3/uL (0.0-0.8); MONO % 10.4 % (2.0-8.0); NEUTROPHILS # 8.3 10^3/uL (1.5-8.5); NEUTROPHILS % 75.9 % (36.0-66.0); PLATELET COUNT, AUTOMATED 281 10^3/uL (150-450); RED BLOOD COUNT 4.57 10^6/uL (4.00-5.40); WHITE BLOOD COUNT 10.9 10^3/uL (4.0-10.0)
== END ==
PROVIDERS: ATTEND Internal Medicine Hematology
DX: D69.3 Immune thrombocytopenic purpura (principal)

== ENCOUNTER → 2024-04-23 | Outpatient (REF) | payer MEDICARE, MEDICAID ==
[2024-04-23 09:37] LABS: BASO % 0.4 % (0.0-1.0); EOS # 0.2 10^3/uL (0.0-0.5); EOS % 2.9 % (0.0-3.0); HEMATOCRIT 38.8 % (36.0-47.0); HEMOGLOBIN 12.4 g/dl (12.0-15.5); LYMPH % 12.1 % (24.0-44.0); MEAN CORPUSCULAR HEMOGLOBIN 29.5 pg (27.0-33.0); MEAN CORPUSCULAR VOLUME 92.4 fl (80.0-96.0); MONO # 0.7 10^3/uL (0.0-0.8); MONO % 8.5 % (2.0-8.0); NEUTROPHILS # 6.3 10^3/uL (1.5-8.5); NEUTROPHILS % 75.7 % (36.0-66.0); PLATELET COUNT, AUTOMATED 307 10^3/uL (150-450); WHITE BLOOD COUNT 8.3 10^3/uL (4.0-10.0)
== END ==
PROVIDERS: ATTEND Internal Medicine Hematology
DX: D69.3 Immune thrombocytopenic purpura (principal)

== ENCOUNTER → 2024-04-30 | Outpatient (REF) | payer MEDICARE, MEDICAID ==
[2024-04-30 10:27] LABS: BASO # 0.1 10^3/uL (0.0-0.2); BASO % 0.6 % (0.0-1.0); EOS # 0.2 10^3/uL (0.0-0.5); EOS % 2.6 % (0.0-3.0); HEMOGLOBIN 11.9 g/dl (12.0-15.5); LYMPH # 1.3 10^3/uL (1.5-5.0); LYMPH % 17.2 % (24.0-44.0); MEAN CORPUSCULAR HEMOGLOBIN 29.4 pg (27.0-33.0); MEAN CORPUSCULAR HGB CONC 32.2 g/dl (32.0-36.5); MEAN CORPUSCULAR VOLUME 91.4 fl (80.0-96.0); MONO # 0.8 10^3/uL (0.0-0.8); MONO % 10.6 % (2.0-8.0); NEUTROPHILS # 5.3 10^3/uL (1.5-8.5); NEUTROPHILS % 68.7 % (36.0-66.0); PLATELET COUNT, AUTOMATED 301 10^3/uL (150-450); RED BLOOD COUNT 4.05 10^6/uL (4.00-5.40); WHITE BLOOD COUNT 7.8 10^3/uL (4.0-10.0)
== END ==
PROVIDERS: ATTEND Internal Medicine Hematology
DX: D69.3 Immune thrombocytopenic purpura (principal)

== ENCOUNTER → 2024-07-06 | Outpatient (REF) | payer MEDICARE, MEDICAID ==
[~2024-07-06] MED LIST changes: +OPTI0.5D2 OP
[2024-07-06 09:26] LABS: BASO # 0.1 10^3/uL (0.0-0.2); BASO % 0.7 % (0.0-1.0); EOS # 0.3 10^3/uL (0.0-0.5); EOS % 4.6 % (0.0-3.0); HEMATOCRIT 43.2 % (36.0-47.0); LYMPH # 1.7 10^3/uL (1.5-5.0); LYMPH % 23.7 % (24.0-44.0); MEAN CORPUSCULAR HGB CONC 32.4 g/dl (32.0-36.5); MEAN CORPUSCULAR VOLUME 89.4 fl (80.0-96.0); MONO # 0.7 10^3/uL (0.0-0.8); MONO % 9.9 % (2.0-8.0); NEUTROPHILS # 4.4 10^3/uL (1.5-8.5); NEUTROPHILS % 60.8 % (36.0-66.0); PLATELET COUNT, AUTOMATED 313 10^3/uL (150-450); RED BLOOD COUNT 4.83 10^6/uL (4.00-5.40); WHITE BLOOD COUNT 7.2 10^3/uL (4.0-10.0)
== END ==
PROVIDERS: ATTEND Internal Medicine Hematology
DX: D69.3 Immune thrombocytopenic purpura (principal)

== ENCOUNTER → 2024-10-31 | Outpatient (CLI) | payer MEDICARE, MEDICAID ==
[~2024-10-31] MED LIST changes: +CARB1DRO13 OU; +CEFD300CAP PO; +DIGO0.123 PO; +DILT12SRCA PO; +DOXY-440 PO; +FURO40TA2 PO; +POTA-298 PO
[2024-10-31 18:22] LABS: DIGOXIN LEVEL 0.8 NG/ML (0.8-2.0)
[2024-10-31 18:23] LABS: BASO # 0.1 10^3/uL (0.0-0.2); BASO % 1.0 % (0.0-1.0); EOS # 0.5 10^3/uL (0.0-0.5); EOS % 4.6 % (0.0-3.0); LYMPH # 2.3 10^3/uL (1.5-5.0); LYMPH % 21.5 % (24.0-44.0); MONO # 1.2 10^3/uL (0.0-0.8); MONO % 10.7 % (2.0-8.0); NEUTROPHILS # 6.7 10^3/uL (1.5-8.5); NEUTROPHILS % 61.8 % (36.0-66.0); PLATELET COUNT, AUTOMATED 289 10^3/uL (150-450)
[2024-10-31 18:26] LABS: CALCIUM LEVEL 8.6 MG/DL (8.3-10.6); CARBON DIOXIDE LEVEL 26.0 MMOL/L (20-31); CHLORIDE LEVEL 104.0 MMOL/L (98-107); CREATININE FOR GFR 1.16 MG/DL (0.55-1.30); GLOMERULAR FILTRATION RATE 46.8 (>32); POTASSIUM SERUM 3.9 MMOL/L (3.5-5.1); SODIUM LEVEL 145.0 MMOL/L (136-145)
== END ==
LOC: M PLALAB 14:38
PROVIDERS: ATTEND Student in an Organized Health Care Education/Training Program
DX: Z09 Encounter for follow-up examination after completed treatment for conditions other than malignant neoplasm (principal)

== ENCOUNTER → 2024-11-05 | Outpatient (REF) | payer MEDICARE, MEDICAID ==
[2024-11-05 11:11] LABS: CALCIUM LEVEL 8.5 MG/DL (8.3-10.6); CARBON DIOXIDE LEVEL 24.0 MMOL/L (20-31); CHLORIDE LEVEL 104.0 MMOL/L (98-107); CREATININE FOR GFR 1.01 MG/DL (0.55-1.30); GLOMERULAR FILTRATION RATE 55.2 (>32); POTASSIUM SERUM 3.8 MMOL/L (3.5-5.1); SODIUM LEVEL 144.0 MMOL/L (136-145)
== END ==
PROVIDERS: ATTEND Student in an Organized Health Care Education/Training Program
DX: I42.9 Cardiomyopathy, unspecified (principal)

== ENCOUNTER → 2024-11-07 | Outpatient (REF) | payer MEDICARE, MEDICAID ==
[2024-11-07 09:29] LABS: ESTIMATED AVERAGE GLUCOSE 117.0 MG/DL (60-110)
== END ==
PROVIDERS: ATTEND Student in an Organized Health Care Education/Training Program
DX: I42.9 Cardiomyopathy, unspecified (principal); Z79.899 Other long term (current) drug therapy

== ENCOUNTER → 2025-01-28 | Outpatient (REF) | payer MEDICARE, MEDICAID ==
[~2025-01-28] MED LIST changes: +FAMO20TA PO; +PROP1DRO; +TORS10TA3 PO
[2025-01-28 11:17] LABS: PLATELET COUNT, AUTOMATED 348 10^3/uL (150-450)
[2025-01-28 11:57] LABS: CALCIUM LEVEL 8.6 MG/DL (8.3-10.6); CARBON DIOXIDE LEVEL 26.0 MMOL/L (20-31); CHLORIDE LEVEL 103.0 MMOL/L (98-107); CHOLESTEROL LEVEL 108.0 MG/DL (<200); CHOLESTEROL RISK RATIO 3.2 (<5); CREATININE FOR GFR 0.94 MG/DL (0.55-1.30); DIGOXIN LEVEL 1.0 NG/ML (0.8-2.0); GLOMERULAR FILTRATION RATE 60.2 (>32); LDL CHOLESTEROL 43.1 MG/DL (<100); NON-HDL-C 74.3 MG/DL; POTASSIUM SERUM 3.8 MMOL/L (3.5-5.1); SODIUM LEVEL 140.0 MMOL/L (136-145); TRIGLYCERIDES LEVEL 156.0 MG/DL (<150)
== END ==
PROVIDERS: ATTEND Student in an Organized Health Care Education/Training Program
DX: E78.00 Pure hypercholesterolemia, unspecified (principal); R06.02 Shortness of breath; R53.83 Other fatigue

== ENCOUNTER → 2025-02-13 | Outpatient (REF) | payer MEDICARE, MEDICAID | PROVIDERS: ATTEND Student in an Organized Health Care Education/Training Program | DX: I50.9 Heart failure, unspecified (principal); I48.19 Other persistent atrial fibrillation; R00.2 Palpitations; Z53.8 Procedure and treatment not carried out for other reasons ==

== ENCOUNTER → 2025-03-22 | Outpatient (REF) | payer MEDICARE, MEDICAID ==
[2025-03-22 10:13] LABS: BASO # 0.0 10^3/uL (0.0-0.2); BASO % 0.4 % (0.0-1.0); EOS # 0.3 10^3/uL (0.0-0.5); EOS % 2.2 % (0.0-3.0); LYMPH # 1.9 10^3/uL (1.5-5.0); LYMPH % 16.6 % (24.0-44.0); MONO # 0.8 10^3/uL (0.0-0.8); MONO % 6.8 % (2.0-8.0); NEUTROPHILS # 8.2 10^3/uL (1.5-8.5); NEUTROPHILS % 73.5 % (36.0-66.0); PLATELET COUNT, AUTOMATED 372 10^3/uL (150-450)
[2025-03-22 10:30] LABS: CALCIUM LEVEL 8.7 MG/DL (8.3-10.6); CARBON DIOXIDE LEVEL 26.0 MMOL/L (20-31); CHLORIDE LEVEL 104.0 MMOL/L (98-107); CREATININE FOR GFR 1.06 MG/DL (0.55-1.30); GLOMERULAR FILTRATION RATE 52.1 (>32); POTASSIUM SERUM 3.9 MMOL/L (3.5-5.1); SODIUM LEVEL 143.0 MMOL/L (136-145)
== END ==
PROVIDERS: ATTEND Student in an Organized Health Care Education/Training Program
DX: I50.9 Heart failure, unspecified (principal); I48.19 Other persistent atrial fibrillation; R00.2 Palpitations

== ENCOUNTER → 2025-04-05 | Outpatient (REF) | payer MEDICARE, MEDICAID ==
[2025-04-05 11:42] LABS: BASO # 0.1 10^3/uL (0.0-0.2); BASO % 0.4 % (0.0-1.0); EOS # 0.2 10^3/uL (0.0-0.5); EOS % 1.9 % (0.0-3.0); LYMPH # 2.1 10^3/uL (1.5-5.0); LYMPH % 16.9 % (24.0-44.0); MONO # 0.8 10^3/uL (0.0-0.8); MONO % 6.8 % (2.0-8.0); NEUTROPHILS # 9.0 10^3/uL (1.5-8.5); NEUTROPHILS % 73.5 % (36.0-66.0); PLATELET COUNT, AUTOMATED 363 10^3/uL (150-450)
[2025-04-05 12:09] LABS: CALCIUM LEVEL 9.0 MG/DL (8.3-10.6); CARBON DIOXIDE LEVEL 27.0 MMOL/L (20-31); CHLORIDE LEVEL 103.0 MMOL/L (98-107); CHOLESTEROL LEVEL 100.0 MG/DL (<200); CHOLESTEROL RISK RATIO 2.67 (<5); CREATININE FOR GFR 0.96 MG/DL (0.55-1.30); DIGOXIN LEVEL 1.2 NG/ML (0.8-2.0); GLOMERULAR FILTRATION RATE 58.7 (>32); LDL CHOLESTEROL 36.8 MG/DL (<100); MAGNESIUM LEVEL 2.1 MG/DL (1.8-2.4); NON-HDL-C 62.6 MG/DL; POTASSIUM SERUM 4.2 MMOL/L (3.5-5.1); SODIUM LEVEL 140.0 MMOL/L (136-145); TRIGLYCERIDES LEVEL 129.0 MG/DL (<150)
[2025-04-05 12:10] LABS: ESTIMATED AVERAGE GLUCOSE 120.0 MG/DL (60-110)
== END ==
PROVIDERS: ATTEND Student in an Organized Health Care Education/Training Program
DX: Z00.00 Encounter for general adult medical examination without abnormal findings (principal); I48.0 Paroxysmal atrial fibrillation; I50.30 Unspecified diastolic (congestive) heart failure; Z79.899 Other long term (current) drug therapy